=== PATIENT | male | born 1935 | race Caucasian/White ===

== ENCOUNTER 2023-12-20 10:09 | Observation (INO) | payer OTHER, MEDICARE ==
[2023-12-20] MEDS ORDERED: AMLODIPINE 10 MG TAB ONE (10:52)
[2023-12-20 11:14] LABS: Absolute Basophils 0.1 K/uL (0-0.5); Absolute Lymphocytes (CBC) 2.1 K/uL (0.7-4.9); Absolute Monocytes 0.9 K/uL (0.1-1.3); Absolute Neutrophil 8.6 K/uL (1.8-8.0); Eosinophils % 0.2 % (0-4.4); Hematocrit 31.3 % (39.6-49.0); Hemoglobin 10.4 g/dL (13.6-17.9); MCH 30.5 pg (27.0-35.0); MCHC 33.1 g/dL (32.0-36.0); MCV 92.2 fL (80-100); Monocytes % 7.7 % (3.3-12.3); Neutrophils % 73.1 % (41.7-73.7); Platelets 236 thou/uL (152-406); Red Cell Distribution Width 16.5 % (12.1-15.2)
[2023-12-20 11:31] LABS: Albumin 3.4 g/dL (3.4-5.0); Albumin/Globulin Ratio 1.1 (1.1-1.8); Bilirubin Total 0.7 mg/dL (0.2-1.0); Globulin 3.2 g/dL (2.3-3.5); Protein, Total 6.6 g/dL (6.4-8.2)
[2023-12-20 11:37] LABS: Troponin High Sensitivity 120.2 pg/mL (<58.9)
--- NOTE | 2023-12-20 11:50 | EDPHYS ---
Physician Documentation [facility] Name: Walter Sanz Age: 88 yrs Sex: Male : 1935 Arrival Date: 12/20/2023 Time: 10:09 Bed 8 Private MD: ED Physician Ralph Cavazos HPI: 12/19 11:40 This 88 yrs old Male presents to ER via Ambulatory with complaints of High Blood rt Pressure. 11:40 Patient presents to the ED from primary care's office for hypertension. History is rt limited due to patient with baseline dementia, states he has no complaints currently. The patient's blood pressure was reportedly 220 at the office. Denies other acute complaints at this time, symptoms are moderate in severity, no other aggravating or alleviating factors.. Historical: - Allergies: 10:25 PENICILLINS; aa5 - PMHx: 10:25 Hypertensive disorder; kidney problem; pacemaker; Dementia; aa5 - PSHx: 10:25 Pacemaker; aa5 - Immunization history:: Adult Immunizations unknown. - Infectious Disease History:: Denies. - Social history:: Smoking status: Patient denies any tobacco usage or history of. ROS: 12:00 Unable to obtain ROS due to baseline dementia, rt Exam: 12:00 Constitutional: This is a well developed, well nourished patient who is awake, alert, rt and in no acute distress. Head/Face: Normocephalic, atraumatic. Chest/axilla: Normal chest wall appearance and motion. Nontender with no deformity. No lesions are appreciated. Cardiovascular: Regular rate and rhythm with a normal S1 and S2. No gallops, murmurs, or rubs. Normal PMI, no JVD. No pulse deficits. Respiratory: Lungs have equal breath sounds bilaterally, clear to auscultation and percussion. No rales, rhonchi or wheezes noted. No increased work of breathing, no retractions or nasal flaring. Abdomen/GI: Soft, non-tender, with normal bowel sounds. No distension or tympany. No guarding or rebound. No evidence of tenderness throughout. Skin: Warm, dry with normal turgor. Normal color with no rashes, no lesions, and no evidence of cellulitis. MS/ Extremity: Pulses equal, no cyanosis. Neurovascular intact. Full, normal range of motion. 12:00 ECG was reviewed by the Attending Physician. Vital Signs: 10:26 BP 195 / 100; Pulse 60; Resp 16 S; Temp 97.3(TE); Pulse Ox 98% on R/A; Weight 67.13 kg aa5 (R); Height 5 ft. 4 in. (R); 14:39 BP 161 / 50; Pulse 60; Resp 16 S; Pulse Ox 97% on R/A; kc6 15:00 BP 162 / 84; Pulse 48; Resp 16; Pulse Ox 100% on R/A; db 16:00 BP 155 / 54; Pulse 60; Resp 15; Temp 97.6; Pulse Ox 99% on R/A; db 10:26 Body Mass Index 25.40 (67.13 kg, 162.56 cm) aa5 MDM: 10:37 Patient medically screened. rt 12:00 Differential diagnosis: Hypertensive emergency, elevated troponin, renal dysfunction. rt Data reviewed: vital signs, nurses notes, lab test result(s), EKG. Consideration of Admission/Observation Patient was admitted/placed on observation. Management of patient was discussed with the following: Hospitalist: Increased to admit. I considered the following discharge prescriptions or medication management in the emergency department Medications were administered in the Emergency Department. See MAR. Care significantly affected by the following chronic conditions: Hypertension. Counseling: I had a detailed discussion with the patient and/or guardian regarding the historical points, exam findings, and any diagnostic results supporting the discharge/admit diagnosis, lab results, the need for further work-up and treatment in the hospital. Response to treatment: There is no appreciated change of the patient's symptoms at this time. 12/19 10:48 Order name: CBC with Diff; Complete Time: 11:30 rt 12/19 10:48 Order name: CMP; Complete Time: 11:37 rt 12/19 10:48 Order name: Troponin High Sensitivity; Complete Time: 11:37 rt 12/19 13:18 Order name: T4 Free EDUT 12/19 13:18 Order name: Thyroid Stimulating Hormone EDUT 12/19 13:18 Order name: Urinalysis w/ reflexes EDUT 12/19 13:18 Order name: Basic Metabolic Panel EDUT 12/19 13:18 Order name: Basic Metabolic Panel EDUT 12/19 13:18 Order name: Basic Metabolic Panel EDUT 12/19 13:18 Order name: Basic Metabolic Panel EDMS 12/19 13:18 Order name: Basic Metabolic Panel EDMS 12/19 13:18 Order name: Basic Metabolic Panel EDMS 12/19 13:18 Order name: CBC with Automated Diff EDMS 12/19 13:18 Order name: CBC with Automated Diff EDMS 12/19 13:18 Order name: CBC with Automated Diff EDMS 12/19 13:18 Order name: CBC with Automated Diff EDMS 12/19 13:18 Order name: CBC with Automated Diff EDMS 12/19 13:18 Order name: CBC with Automated Diff EDMS 12/19 13:18 Order name: Lipid Profile EDMS 12/19 13:18 Order name: Lipid Profile EDMS 12/19 13:18 Order name: Magnesium EDMS 12/19 13:18 Order name: Magnesium EDMS 12/19 13:18 Order name: Magnesium EDMS 12/19 13:18 Order name: Magnesium EDMS 12/19 13:18 Order name: Magnesium EDMS 12/19 13:18 Order name: Magnesium EDMS 12/19 13:18 Order name: Phosphorus EDMS 12/19 13:18 Order name: Phosphorus EDMS 12/19 13:18 Order name: Phosphorus EDMS 12/19 13:18 Order name: Phosphorus EDMS 12/19 13:18 Order name: Phosphorus EDMS 12/19 13:18 Order name: Phosphorus EDMS 12/19 13:18 Order name: Troponin High Sensitivity EDMS 12/19 13:18 Order name: Troponin High Sensitivity EDMS 12/19 13:18 Order name: Troponin High Sensitivity EDMS 12/19 13:18 Order name: Echo with Doppler EDMS 12/19 10:48 Order name: EKG; Complete Time: 10:49 rt 12/19 10:48 Order name: EKG - Nurse/Tech; Complete Time: 11:11 rt EC:00 Rate is 60 beats/min. Rhythm is regular, Paced with Right bundle branch block. QRS rt interval is normal. QT interval is normal. No Q waves. Administered Medications: 11:11 Drug: amLODIPine PO 10 mg PO once Route: PO; kc6 14:39 Follow up: Response: No adverse reaction; Blood pressure is lowered kc6 11:56 Drug: hydrALAZINE IVP 20 mg IVP once Route: IVP; Site: right antecubital; kc6 14:39 Follow up: Response: No adverse reaction; Blood pressure is lowered kc6 Disposition Summary: 12/20/23 11:49 Hospitalization Ordered Notes: Hospitalization Status: Observation rt Provider: Gerry Sarabia rt Condition: Fair rt Problem: new rt Symptoms: are unchanged rt Bed/Room Type: Standard rt Location: Telemetry/MedSurg (observation)(12/20/23 16:10) kb3 Room Assignment: 403(12/20/23 16:10) kb3 Diagnosis - Hypertensive emergency rt - Elevated troponin rt Forms: - Medication Reconciliation Form rt - SBAR form rt - Leadership Thank You Letter rt Critical care time excluding procedures: 12:00 Critical care time: Bedside Care: 30 minutes, Consultation: 5 minutes. Total time: 35 rt minutes Signatures: Dispatcher [employer] EDEloisa Jones, RN RN aa5 Ilene King RN RN kc6 Mavis Valentin RN RN [email or web address] Ralph Cavazos MD MD rt Corrections: (The following items were deleted from the chart) 10:49 10:49 CBC+H.LAB.BRZ ordered. EDMS EDMS 10:49 10:49 COMPREHENSIVE METABOLIC PANEL+C.LAB.BRZ ordered. EDMS EDMS 10:49 10:49 Troponin High Sensitivity+C.LAB.BRZ ordered. EDMS EDMS 13:31 11:49 Telemetry/MedSurg (observation) rt kb3 13:31 11:49 rt kb3 16:10 13:31 BR ER HOLD kb3 kb3 16:10 13:31 ERHOLD- kb3 kb3
--- NOTE | 2023-12-20 11:50 | ER ---
Nurse's Notes [facility] Name: Walter Sanz Age: 88 yrs Sex: Male : 1935 Arrival Date: 12/20/2023 Time: 10:09 Bed 8 Private MD: Diagnosis: Hypertensive emergency;Elevated troponin Presentation: 12/19 10:26 Chief complaint: Chief complaint: Pt's family report high blood pressure readings at aa5 home, >200 systolic. Coronavirus screen: At this time, the client does not indicate any symptoms associated with coronavirus-19. Ebola Screen: Patient denies travel to an Ebola-affected area in the 21 days before illness onset. Initial Sepsis Screen: Does the patient meet any 2 criteria? No. Patient's initial sepsis screen is negative. Does the patient have a suspected source of infection? No. Patient's initial sepsis screen is negative. Risk Assessment: Do you want to hurt yourself or someone else? Patient reports no desire to harm self or others. Onset of symptoms was November 2023. 10:26 Acuity: SHI 2 aa5 10:26 Method Of Arrival: Ambulatory aa5 Historical: - Allergies: 10:25 PENICILLINS; aa5 - PMHx: 10:25 Hypertensive disorder; kidney problem; pacemaker; Dementia; aa5 - PSHx: 10:25 Pacemaker; aa5 - Immunization history:: Adult Immunizations unknown. - Infectious Disease History:: Denies. - Social history:: Smoking status: Patient denies any tobacco usage or history of. Screenin:12 [facility] ED Fall Risk Assessment (Adult) History of falling in the last 3 months, kc6 including since admission No falls in past 3 months (0 pts) Confusion or Disorientation No (0 pts) Intoxicated or Sedated No (0 pts) Impaired Gait No (0 pts) Mobility Assist Device Used No (0 pt) Altered Elimination No (0 pt) Score/Fall Risk Level 0 - 2 = Low Risk. Abuse screen: Denies threats or abuse. Denies injuries from another. Nutritional screening: No deficits noted. Tuberculosis screening: No symptoms or risk factors identified. Assessment: 11:15 General: Appears in no apparent distress. comfortable, well groomed, well developed, kc6 Behavior is calm, cooperative, appropriate for age. Pain: Denies pain. Neuro: Level of Consciousness is awake, alert, obeys commands, Oriented to person, place, time, situation, Appropriate for age. Cardiovascular: Denies chest pain, Heart tones S1 S2 present Capillary refill < 3 seconds Rhythm is atrial pacer. Respiratory: Airway is patent Trachea midline Respiratory effort is even, unlabored, Respiratory pattern is regular, symmetrical. GI: No signs and/or symptoms were reported involving the gastrointestinal system. : No signs and/or symptoms were reported regarding the genitourinary system. EENT: No signs and/or symptoms were reported regarding the EENT system. Derm: No signs and/or symptoms reported regarding the dermatologic system. Skin is intact, is healthy with good turgor, Skin is pink, warm \T\ dry. Musculoskeletal: No signs and/or symptoms reported regarding the musculoskeletal system. Circulation, motion, and sensation intact. Capillary refill < 3 seconds, Range of motion: intact in all extremities. 12:15 Reassessment: Patient appears in no apparent distress at this time. No changes from kc6 previously documented assessment. Patient and/or family updated on plan of care and expected duration. Pain level reassessed. Patient is alert, oriented x 3, equal unlabored respirations, skin warm/dry/pink. 13:15 Reassessment: Patient appears in no apparent distress at this time. No changes from kc6 previously documented assessment. Patient and/or family updated on plan of care and expected duration. Pain level reassessed. Patient is alert, oriented x 3, equal unlabored respirations, skin warm/dry/pink. 14:39 Reassessment: Patient appears in no apparent distress at this time. No changes from kc6 previously documented assessment. Patient and/or family updated on plan of care and expected duration. Pain level reassessed. Patient is alert, oriented x 3, equal unlabored respirations, skin warm/dry/pink. 16:30 Reassessment: Patient appears in no apparent distress at this time. No changes from db previously documented assessment. Patient and/or family updated on plan of care and expected duration. Pain level reassessed. Patient is alert, oriented x 3, equal unlabored respirations, skin warm/dry/pink. 16:51 Reassessment: PATIENT PROVIDED DINNER TRAY. db Vital Signs: 10:26 BP 195 / 100; Pulse 60; Resp 16 S; Temp 97.3(TE); Pulse Ox 98% on R/A; Weight 67.13 kg aa5 (R); Height 5 ft. 4 in. (R); 14:39 BP 161 / 50; Pulse 60; Resp 16 S; Pulse Ox 97% on R/A; kc6 15:00 BP 162 / 84; Pulse 48; Resp 16; Pulse Ox 100% on R/A; db 16:00 BP 155 / 54; Pulse 60; Resp 15; Temp 97.6; Pulse Ox 99% on R/A; db 10:26 Body Mass Index 25.40 (67.13 kg, 162.56 cm) aa5 ED Course: 10:16 Patient arrived in ED. mg5 10:20 Ralph Cavazos MD is Attending Physician. rt 10:25 Arm band placed on. aa5 10:27 Triage completed. aa5 10:42 Ilene King, TERESSA is Primary Nurse. kc6 11:12 Patient has correct armband on for positive identification. Bed in low position. Call kc6 light in reach. Side rails up X2. Adult w/ patient. potline monitor on. Pulse ox on. NIBP on. Door closed. Noise minimized. Lights dimmed. Pillow given. 11:12 EKG done, by ED staff, reviewed by Ralph Cavazos MD. Inserted saline lock: 20 gauge kc6 in right antecubital area, using aseptic technique. Blood collected. 11:37 Notified ED physician of a critical lab result(s). troponin 120.2. jl7 11:49 Gerry Sarabia is Hospitalizing Provider. rt 13:00 No provider procedures requiring assistance completed. Patient admitted, IV remains in kc6 place. 16:38 Provided Education on: ADMISSION. db Administered Medications: 11:11 Drug: amLODIPine PO 10 mg PO once Route: PO; kc6 14:39 Follow up: Response: No adverse reaction; Blood pressure is lowered kc6 11:56 Drug: hydrALAZINE IVP 20 mg IVP once Route: IVP; Site: right antecubital; kc6 14:39 Follow up: Response: No adverse reaction; Blood pressure is lowered kc6 Medication: 13:00 VIS not applicable for this client. kc6 Outcome: 11:49 Decision to Hospitalize by Provider. rt 13:00 Admitted to ER Hold. Please see [facility] for further documentation. kc6 13:00 Condition: good 13:00 Instructed on the need for admit, 17:22 Patient left the ED. db Signatures: Eloisa Borrero, RN RN aa5 Felicitas Steele RN RN jl7 Ilene King RN RN kc6 Janie Cottrell RN RN db Ralph Cavazos MD MD rt [place], [place] mg5
[2023-12-20] MEDS ORDERED: HYDRALAZINE HCL 20 MG/ML VIAL ONE (11:52)
--- NOTE | 2023-12-20 12:33 | P.HP ---
Certification for Inpatient Patient admitted to: Observation With expected LOS: <2 Midnights Patient will require the following post-hospital care: None Practitioner: I am a practitioner with admitting privileges, knowledge of patient current condition, hospital course, and medical plan of care. Services: Services provided to patient in accordance with Admission requirements found in Title 42 Section 412.3 of the Code of Federal Regulations Patient History Date of Service: 12/20/23 Reason for admission: HTN Urgency, NSTEMI History of Present Illness: Walter Sanz is an 88 year old male with Pmhx hypertension, pacemaker, dementia, kidney problems who presents to the ER from his primary care's office with hypertension. is at bedside and is a good historian, she reports home health ([facility]) nurses evaluating him for several days with an SBP greater than 220 with no changes made to his medications. He was visiting his regular PCP this morning with SBP of 220 and was sent to the emergency room. Upon arrival to the emergency room his troponin elevated at 120.2 while asymptomatic. Walter sees Dr. Lim, has a pacemaker. Of note, Walter has dementia and oriented to person only. Per his , this is his baseline. Initial vital BP 195 / 100; Pulse 60; Resp 16 S; Temp 97.3(TE); Pulse Ox 98% on R/A Walter will be admitted to hospitalist service for further evaluation and treatment, Cardiology consulted. Allergies Penicillins Allergy (Verified 11/30/16 08:32) Rash morphine Adverse Reaction (Verified 11/30/16 08:32) "makes me wired" Home Medications: Amlodipine [Norvasc*] 2.5 mg PO BIDP PRN 11/30/16 Aspirin [Aspirin EC 81 MG] 81 mg PO DAILY 11/30/16 Metoprolol Tartrate 100 mg PO BID 11/30/16 Mv-Min/FA/Vit K/Lycop/Lut/Zeax [Ocuvite Eye Plus Multi Tablet] 1 each PO DAILY 11/30/16 Tramadol HCl [Ultram] 50 mg PO BIDP PRN 11/30/16 Zolpidem Tartrate [Ambien*] 10 mg PO BEDTIME 11/30/16 hydroCHLOROthiazide [Hydrodiuril*] 25 mg PO DAILY 11/30/16 lisinopriL [Prinivil*] 20 mg PO BID 11/30/16 - Past Medical/Surgical History -: Hypertension -: Blood clot R arm -: Prostatectomy -: Cataract surgery -: Neck surgery -: Bilateral foot surgery - Social History Alcohol use: No Review of Systems is unable to be obtained Physical Examination - Physical Exam General: Alert, In no apparent distress, Oriented x1 HEENT: Atraumatic, Normocephalic, PERRLA Neck: Supple Respiratory: Clear to auscultation bilaterally, Normal air movement Cardiovascular: Normal pulses, Regular rate/rhythm, Normal S1 S2 Capillary refill: <2 Seconds Gastrointestinal: Normal bowel sounds, Soft and benign, Non-distended Musculoskeletal: Swelling, Other (bilateral lower extremity edema ) - Studies Laboratory Data (last 24 hrs) 12/20/23 12/20/23 11:05 11:05 WBC 11.70 H Hgb 10.4 L Hct 31.3 L Plt Count 236 Sodium 140 Potassium 4.0 BUN 29 H Creatinine 2.01 H Glucose 96 Total Bilirubin 0.7 AST 11 L ALT 22 Alkaline Phosphatase 78 Assessment and Plan - Plan Assessment and plan NSTEMI Hypertensive urgency Prolonged QT -Trop 120.2, serial pending -QT/QTc 490/490 -Consult cardiology -Hydralazine as needed -Continue home medication -ECHO -continuous telemetry -asa and statin daily (Asa 325 given in ED) -tylenol and nitroglycerin PRN -hold medications that prolong QT -heparin gtt History of Dementia -Continue home medication History of kidney problem -Continue home medication -Dr. Messina consulted -BUN and creatinine 29/2.01, GFR 32 DVT PPx heparin drip Full code LOS 2 to 3 days Discharge Plan: Home Plan to discharge in: 48 Hours - Advance Directives Does patient have a Living Will: No Does patient have a Durable POA for Healthcare: No
[2023-12-20] MEDS ORDERED: ACETAMINOPHEN 325 MG TABLET PO PRN (13:01)
[2023-12-20] MEDS ORDERED: HYDRALAZINE HCL 20 MG/ML VIAL IV PRN (13:01)
[2023-12-20] MEDS ORDERED: NITROGLYCERIN 0.4 MG/TAB SL PRN (13:01)
[2023-12-20 14:15] LABS: Thyroid Stimulating Hormone 5.06 uIU/mL (0.358-3.740)
[2023-12-20] MEDS: NA CHLORIDE 0.9% 1,000 ML IV SCH (19:18)
[2023-12-20 19:31] VITALS: BMI 23.8
[2023-12-20] MEDS: HEPARIN/D5W 25,000 UNIT/500 ML BAG IV SCH (19:52)
[2023-12-20] MEDS: ATORVASTATIN 40 MG TAB PO SCH (20:57)
[2023-12-20 21:22] LABS: Specific Gravity 1.016 (1.005-1.030); Sqamous Epithelial None Seen /HPF (None Seen); Urine Bacteria None Seen /HPF (<20); Urine Bilirubin NEGATIVE (Negative); Urine Blood Negative (Negative); Urine Clarity Clear (Clear); Urine Color Light-Yellow (Yellow); Urine Culture Reflex Order NOT NEEDED; Urine Glucose NEGATIVE (Negative); Urine Ketones NEGATIVE (Negative); Urine Microscopic Reflex YN ORDER UMIC; Urine Nitrite NEGATIVE (Negative); Urine Protein 1+ (Negative); Urine RBC <5 /HPF (None Seen); Urine Urobilinogen Normal (Normal); Urine WBC <5 /HPF (<5); Urine WBC Clump Rare /HPF (None Seen); Urine pH 5.5 (5.0-7.0)
[2023-12-21] MEDS ORDERED: TRAMADOL HCL 50 MG TAB PO PRN (06:33)
[2023-12-21 07:04] LABS: Absolute Lymphocytes (CBC) 1.8 K/uL (0.7-4.9); Absolute Monocytes 0.7 K/uL (0.1-1.3); Absolute Neutrophil 8.4 K/uL (1.8-8.0); Basophils % 0.3 % (0-1.3); Eosinophils % 0.1 % (0-4.4); Hematocrit 28.8 % (39.6-49.0); Hemoglobin 9.7 g/dL (13.6-17.9); MCH 31.2 pg (27.0-35.0); MCHC 33.8 g/dL (32.0-36.0); MCV 92.2 fL (80-100); MPV 8.2 fL (7.6-11.3); Monocytes % 6.8 % (3.3-12.3); Neutrophils % 76.8 % (41.7-73.7); Platelets 199 thou/uL (152-406); RBC Red Blood Cell Count 3.12 M/uL (4.33-5.43); Red Cell Distribution Width 16.5 % (12.1-15.2)
[2023-12-21 07:15] LABS: Anion Gap 8.8 mEq/L (5.0-15.0); Magnesium 2.1 mg/dL (1.6-2.4); Phosphorus 3.1 mg/dL (2.5-4.9); Potassium 3.8 mEq/L (3.5-5.1)
[2023-12-21] MEDS: ASPIRIN EC 81 MG TAB PO SCH (09:00)
[2023-12-21] MEDS: KCL 20 MEQ/100 mL IVPB 20 MEQ/100 ML BAG IV SCH (09:00)
[2023-12-21] MEDS ORDERED: ATORVASTATIN 40 MG TAB PO SCH (09:00)
--- NOTE | 2023-12-21 09:31 | P.PN ---
Date of Service: 12/21/23 Subjective: Awake, denies complaints No acute events overnight No chest pain or shortness of breath ROS: 10 point ROS as noted above, otherwise negative Physical exam GEN: Alert, oriented, NAD HEENT: Normal conjunctiva, sclera anicteric CV: Regular rate and rhythm, no edema Pulm: Nonlabored respirations on room air ABD: Soft, nontender, nondistended MSK: No joint tenderness Integumentary: No rashes Neuro: Normal speech, normal affect Vitals reviewed Assessment and plan NSTEMI Hypertensive urgency Prolonged QT Trop 120.2, 88, 60s downtrending, Consult cardiology Await cardiology recs QT/QTc 490/490 ECHO ordered continuous telemetry asa and statin daily hold medications that prolong QT heparin gtt, resume home xarelto when off heparin drip History of Dementia/TIA Continue home medication History of kidney problem Continue home medication Dr. Messina consulted DVT PPx heparin drip Full code LOS 2 to 3 days Discharge Plan: Home Plan to discharge in: 48 Hours Time Spent Managing Pts Care (In Minutes): 35
[2023-12-21] MEDS: METOPROLOL TAR 50 MG TAB PO SCH (12:45)
[2023-12-21] MEDS: AMLODIPINE 5 MG TAB PO SCH (12:46)
[2023-12-21] MEDS: MEMANTINE HCL 10 MG TABLET PO SCH (12:46)
[2023-12-21 13:32] VITALS: O2SAT 95
--- NOTE | 2023-12-21 13:37 | P.CNS ---
Date of Consult: 12/21/23 Chief Complaint: HTN Urgency, NSTEMI History of Present Illness: Patient with PMH of hypertension, presented with hard to control BP, denies chest pain, no SOB, no palpitations, no syncope. Allergies Penicillins Allergy (Verified 11/30/16 08:32) Rash morphine Adverse Reaction (Verified 11/30/16 08:32) "makes me wired" Home Medications: Metoprolol Tartrate 100 mg PO BID 11/30/16 Mv-Min/FA/Vit K/Lycop/Lut/Zeax [Ocuvite Eye Plus Multi Tablet] 1 each PO DAILY 11/30/16 Tramadol HCl [Ultram] 50 mg PO BIDP PRN 11/30/16 Atorvastatin Calcium 40 mg PO DAILY 12/20/23 Donepezil HCl 10 mg PO BEDTIME 12/20/23 Furosemide [Lasix*] 20 mg PO DIRECTED 12/20/23 Memantine HCl 5 mg PO BID 12/20/23 Thiamine HCl [Vitamin B-1] 500 mg PO DAILY 12/20/23 Trazodone [Desyrel*] 50 mg PO BEDTIME 12/20/23 - Past Medical/Surgical History Diabetic: Yes -: Hypertension -: Blood clot R arm -: Prostatectomy -: Cataract surgery -: Neck surgery -: Bilateral foot surgery - Social History Alcohol use: No CD- Drugs: No Caffeine use: No Place of Residence: Home Review of Systems 10-point ROS is otherwise unremarkable Physical Examination Temp Pulse Resp BP Pulse Ox 98.8 F 82 15 169/70 H 95 12/21/23 12:00 12/21/23 12:46 12/21/23 12:00 12/21/23 12:46 12/21/23 12:00 General: Alert, In no apparent distress HEENT: Atraumatic, PERRLA, Mucous membr. moist/pink, EOMI, Sclerae nonicteric Neck: Supple, 2+ carotid pulse no bruit, No LAD, Without JVD or thyroid abnormality Respiratory: Clear to auscultation bilaterally, Normal air movement Cardiovascular: Regular rate/rhythm, Normal S1 S2 Gastrointestinal: Normal bowel sounds, No tenderness Musculoskeletal: No tenderness Integumentary: No rashes Neurological: Normal gait, Normal speech, Normal tone, Normal affect Lymphatics: No axilla or inguinal lymphadenopathy - Problems (1) NSTEMI (non-ST elevated myocardial infarction) Current Visit: Yes Status: Acute Plan: Troponin mild elevated with no significant delta, pateint is chest pain free, most likely type 2 CT secondary to hypertensive emergency. No need for further work up. Continue ASA 81 mg daily Continue Lipitor 40 mg daily (2) HTN (hypertension) Current Visit: Yes Status: Acute Plan: Continue Lopressor 100 mg po BID Continue Norvasc 5 mg daily Continue Lisinopril 20 mg daily Continue HCTZ 25 mg daily (3) HLD (hyperlipidemia) Current Visit: Yes Status: Acute Plan: Continue Lipitor 40 mg daily
--- NOTE | 2023-12-21 16:19 | P.DS ---
Admission Date: 12/20/23 Discharge Date: 12/21/23 Disposition: DC HOME/HOME HEALTH CARE Discharge Condition: GOOD Reason for Admission: HTN Urgency, NSTEMI Consultations: Cardiology- Dr. Lim Brief History of Present Illness: Walter Sanz is an 88 year old male with Pmhx hypertension, pacemaker, dementia, kidney problems who presents to the ER from his primary care's office with hypertension. is at bedside and is a good historian, she reports home health ([facility]) nurses evaluating him for several days with an SBP greater than 220 with no changes made to his medications. He was visiting his regular PCP this morning with SBP of 220 and was sent to the emergency room. Upon arrival to the emergency room his troponin elevated at 120.2 while asymptomatic. Walter sees Dr. Lim, has a pacemaker. Of note, Walter has dementia and oriented to person only. Per his , this is his baseline. Hospital Course: Assessment and plan NSTEMI Hypertensive urgency Prolonged QT History of Dementia/TIA CKD Patient was admitted to the hospital for NSTEMI, hypertensive emergency. Troponin initially was 120 and trended down to 88 and then to 69.4. He denied any chest pain, shortness of breath or palpitations. He was seen by cardiology who believes this is likely related to demand ischemia from high blood pressure and does not require further inpatient cardiac workup at this time. Blood pressure is significantly improved with his metoprolol 100mg by mouth twice daily and Norvasc 5 mg. If patient requires further blood pressure medication titration the addition of lisinopril 20 mg daily and hydrochlorothiazide 25 mg daily could be added at a later date as recommended by cardiology Cardiology also recommends daily baby aspirin 81 mg. Please continue your other home medications as previously prescribed, prescription for amlodipine 5 mg was sent [address] Dr. Quinn to [facility] pharmacy and should be available for pickup. At this time blood pressure 146/70 with just the twice daily metoprolol and amlodipine 5 mg daily Discussed possible addition of lisinopril 20 mg daily with significant other at bedside, will send prescription to [facility] for the lisinopril 20 mg daily, instructed to add to daily blood pressure medications if his blood pressure is persistently greater than 150 systolic at home Please follow-up with your primary care doctor Dr. Quinn in the next 1 to 2 weeks Please also follow-up with cardiologyDr. Delarosa Vital Signs/Physical Exam: Temp Pulse Resp BP Pulse Ox 98.8 F 82 15 169/70 H 95 12/21/23 12:00 12/21/23 12:46 12/21/23 12:00 12/21/23 12:46 12/21/23 12:00 General: Alert, In no apparent distress, Oriented x2 HEENT: Atraumatic, PERRLA Neck: Supple, JVD not distended Respiratory: Clear to auscultation bilaterally, Normal air movement Cardiovascular: Regular rate/rhythm, Normal S1 S2 Gastrointestinal: Normal bowel sounds, No tenderness Musculoskeletal: No tenderness Integumentary: No rashes Neurological: Normal speech, Normal tone Lymphatics: No axilla or inguinal lymphadenopathy Laboratory Data at Discharge: WBC 10.90 thou/uL (4.3-10.9) 12/21/23 06:22 Hgb 9.7 g/dL (13.6-17.9) L 12/21/23 06:22 Hct 28.8 % (39.6-49.0) L 12/21/23 06:22 Plt Count 199 thou/uL (152-406) 12/21/23 06:22 APTT 66.2 SECONDS (24.3-36.9) H 12/21/23 06:22 Sodium 140 mEq/L (136-145) 12/21/23 06:22 Potassium 3.8 mEq/L (3.5-5.1) 12/21/23 06:22 BUN 27 mg/dL (7-18) H 12/21/23 06:22 Creatinine 1.96 mg/dL (0.70-1.30) H 12/21/23 06:22 Glucose 133 mg/dL (74-106) H 12/21/23 06:22 Phosphorus 3.1 mg/dL (2.5-4.9) 12/21/23 06:22 Magnesium 2.1 mg/dL (1.6-2.4) 12/21/23 06:22 Total Bilirubin 0.7 mg/dL (0.2-1.0) 12/20/23 11:05 AST 11 U/L (15-37) L 12/20/23 11:05 ALT 22 U/L (16-61) 12/20/23 11:05 Alkaline Phosphatase 78 U/L (45-117) 12/20/23 11:05 Triglycerides 47 mg/dL (<150) 12/21/23 06:22 Cholesterol 106 mg/dL (<200) 12/21/23 06:22 HDL Cholesterol 69 mg/dL (40-60) H 12/21/23 06:22 Cholesterol/HDL Ratio 1.54 12/21/23 06:22 Home Medications: Metoprolol Tartrate 100 mg PO BID 11/30/16 Mv-Min/FA/Vit K/Lycop/Lut/Zeax [Ocuvite Eye Plus Multi Tablet] 1 each PO DAILY 11/30/16 Tramadol HCl [Ultram] 50 mg PO BIDP PRN 11/30/16 Atorvastatin Calcium 40 mg PO DAILY 12/20/23 Donepezil HCl 10 mg PO BEDTIME 12/20/23 Furosemide [Lasix*] 20 mg PO DIRECTED 12/20/23 Memantine HCl 5 mg PO BID 12/20/23 Thiamine HCl [Vitamin B-1] 500 mg PO DAILY 12/20/23 Trazodone [Desyrel*] 50 mg PO BEDTIME 12/20/23 Amlodipine [Norvasc*] 5 mg PO DAILY tab 12/21/23 lisinopriL [Lisinopril] 20 mg PO DAILY #30 tab 12/21/23 New Medications: lisinopriL [Lisinopril] 20 mg PO DAILY #30 tab Physician Discharge Instructions: Patient was admitted to the hospital for NSTEMI, hypertensive emergency. Troponin initially was 120 and trended down to 88 and then to 69.4. He denied any chest pain, shortness of breath or palpitations. He was seen by cardiology who believes this is likely related to demand ischemia from high blood pressure and does not require further inpatient cardiac workup at this time. Blood pressure is significantly improved with his metoprolol 100mg by mouth twice daily and Norvasc 5 mg. If patient requires further blood pressure medication titration the addition of lisinopril 20 mg daily and hydrochlorothiazide 25 mg daily could be added at a later date as recommended by cardiology Cardiology also recommends daily baby aspirin 81 mg. Please continue your other home medications as previously prescribed, prescription for amlodipine 5 mg was sent by Dr. Quinn to [facility] pharmacy and should be available for pickup. At this time blood pressure 146/70 with just the twice daily metoprolol and amlodipine 5 mg daily Discussed possible addition of lisinopril 20 mg daily with significant other at bedside, will send prescription to [facility] for the lisinopril 20 mg daily, instructed to add to daily blood pressure medications if his blood pressure is persistently greater than 150 systolic at home Please follow-up with your primary care doctor Dr. Quinn in the next 1 to 2 weeks Please also follow-up with cardiology[facility]. [facility]: [facility] P:[phone] F:[phone] Diet: AHA Activity: Fall precautions Followup: Dawson Delarosa MD [ACTIVE - CAN ADMIT] - Edvin Quinn MD [Primary Care Provider] - 1-2 Weeks Time spent managing pt's care (in minutes): 35
[2023-12-21 16:51] VITALS: BP 146/70; TEMP 97.5
[2023-12-21] MEDS ORDERED: TRAZODONE 50 MG TABLET PO SCH (21:00)
[2023-12-21] MEDS ORDERED: DONEPEZIL HCL 5 MG TAB PO SCH (21:00)
--- NOTE | 2023-12-22 14:12 | EKG ---
Test Date: 2023-12-20 Test Time: 10:58:11 Campus Supervisor: CHYNA MEASUREMENT RESULTS: Intervals: Rate: 60 CO: 268 QRSD: 134 QT: 490 QTc: 490 [place]: P: 98 CO: 268 QRS: 82 T: -61 INTERPRETIVE STATEMENTS: Atrial-paced rhythm with prolonged AV conduction Right bundle branch block Abnormal ECG Compared to ECG 05/03/2020 11:27:40 Sinus rhythm no longer present First degree AV block no longer present Electronically Signed On 12-22-23 14:07:54 CDT by Dawson Delarosa
--- NOTE | 2023-12-24 07:50 | ECHO ---
HEIGHT: 5 ft 6 in WEIGHT: 148 lb 0 oz DATE OF STUDY: 12/21/[address]: Amy Lawson NP 2-DIMENSIONAL: YES M.MODE: YES DOPPLER: YES COLOR FLOW: YES TDS: PORTABLE: YES DEFINITY: BUBBLE STUDY: DIAGNOSIS: NON ST ELEVATION MYOCARDIAL INFARCTION CARDIAC HISTORY: CATHERIZATION: NO SURGERY: NO PROSTHETIC VALVE: NO PACEMAKER: YES MEASUREMENTS (cm) DIASTOLIC (NORMALS) SYSTOLIC (NORMALS) IVSd 1.1 (0.6-1.2) LA Diam 2.3 (1.9-4.0) LVEF 60-65% LVIDd 4.4 (3.5-5.7) LVIDs 2.8 (2.0-3.5) %FS 37% LVPWd 1.1 (0.6-1.2) Ao Diam 2.9 (2.0-3.7) 2 DIMENSIONAL ASSESSMENT: RIGHT ATRIUM: NORMAL LEFT ATRIUM: NORMAL RIGHT VENTRICLE: NORMAL, PACEMAKER LEAD SEEN LEFT VENTRICLE: NORMAL TRICUSPID VALVE: MILD TRICUSPID REGURGITATION MITRAL VALVE: TRACE MITRAL REGURGITATION PULMONIC VALVE: NORMAL AORTIC VALVE: TRACE AORTIC REGURGITATION PERICARDIAL EFFUSION: NONE AORTIC ROOT: NORMAL LEFT VENTRICULAR WALL MOTION: NORMAL DOPPLER/COLOR FLOW: GRADE I DIASTOLIC DYSFUNCTION COMMENTS: 1. NORMAL LEFT VENTRICULAR SYSTOLIC FUCNTION, EJECTION FRACTION 60-65%, NORMAL WALL MOTION 2. GRADE I DIASTOLIC DYSFUNCTION 3. MILD PULMONARY HYPERTENSION (RIGHT VENTRICULAR SYSTOLIC PRESSURE 40-45 mmHg) TECHNOLOGIST: STEPHANIE WHITE
== END 2023-12-21 17:38 | disposition home health service (06) ==
LOC: ER 10:09 → ERHOLD 13:01 → 4TH 17:09
PROVIDERS: ADMIT Internal Medicine; ATTEND Internal Medicine
DX: I21.4 Non-ST elevation (NSTEMI) myocardial infarction (principal); I16.0 Hypertensive urgency; R94.31 Abnormal electrocardiogram [ECG] [EKG]; F03.90 Unspecified dementia, unspecified severity, without behavioral disturbance, psychotic disturbance, mood disturbance, and anxiety; N18.9 Chronic kidney disease, unspecified; E78.5 Hyperlipidemia, unspecified; Z88.0 Allergy status to penicillin; Z88.5 Allergy status to narcotic agent; Z86.73 Personal history of transient ischemic attack (TIA), and cerebral infarction without residual deficits
CPT/HCPCS: 93005; 93306; 85025 ×2; 81001; 80048; 36415 ×2; 83735; 84100; 80061; 85730 ×3; 84443; 83036; 84484 ×3; 84439; 80053; 97116; 97161; 96374; 99285; J0360; J7030; G0378 ×4

== ENCOUNTER 2024-02-27 07:30 | Day surgery (SDC) | payer OTHER, MEDICARE ==
[2024-02-27 07:47] LABS: Absolute Eosinophils 0.2 K/uL (0-0.5); Absolute Lymphocytes (CBC) 2.9 K/uL (0.7-4.9); Absolute Monocytes 0.7 K/uL (0.1-1.3); Absolute Neutrophil 3.5 K/uL (1.8-8.0); Basophils % 0.6 % (0-1.3); Eosinophils % 3.2 % (0-4.4); Hematocrit 30.1 % (39.6-49.0); Hemoglobin 9.8 g/dL (13.6-17.9); Lymphocytes % 40.1 % (15.3-44.8); MCH 30.3 pg (27.0-35.0); MCHC 32.6 g/dL (32.0-36.0); MCV 92.8 fL (80-100); MPV 7.8 fL (7.6-11.3); Monocytes % 8.9 % (3.3-12.3); Neutrophils % 47.2 % (41.7-73.7); Platelets 193 thou/uL (152-406); RBC Red Blood Cell Count 3.25 M/uL (4.33-5.43); Red Cell Distribution Width 16.5 % (12.1-15.2)
[2024-02-27] MEDS ORDERED: NA CHLORIDE 0.9% 1,000 ML ONE (07:51)
[2024-02-27 08:03] LABS: PT Prothrombin Time 17.6 SECONDS (9.4-12.5); PTT, Activated Partial Thromb 42.3 SECONDS (24.3-36.9); Protime INR 1.59
[2024-02-27 08:09] LABS: Anion Gap 9.7 mEq/L (5.0-15.0); Potassium 3.7 mEq/L (3.5-5.1)
[2024-02-27 08:25] VITALS: TEMP 97.9; O2SAT 98; BMI 23.3
[2024-02-27 09:31] VITALS: BP 165/60
== END 2024-02-27 09:22 | disposition home or self-care (01) ==
LOC: DS 07:30
PROVIDERS: ATTEND Internal Medicine
DX: D47.2 Monoclonal gammopathy (principal); N17.9 Acute kidney failure, unspecified
CPT/HCPCS: 36415; 80048; 85025; 85610; 85730; J7030

== ENCOUNTER 2024-04-09 07:19 | Day surgery (SDC) | payer OTHER, MEDICARE ==
[2024-04-09 07:54] LABS: Absolute Eosinophils 0.2 K/uL (0-0.5); Absolute Lymphocytes (CBC) 2.2 K/uL (0.7-4.9); Absolute Monocytes 0.6 K/uL (0.1-1.3); Absolute Neutrophil 3.8 K/uL (1.8-8.0); Basophils % 0.4 % (0-1.3); Eosinophils % 2.5 % (0-4.4); Hematocrit 27.2 % (39.6-49.0); Lymphocytes % 32.1 % (15.3-44.8); MCH 29.9 pg (27.0-35.0); MCHC 33.1 g/dL (32.0-36.0); MCV 90.2 fL (80-100); MPV 7.4 fL (7.6-11.3); Monocytes % 8.8 % (3.3-12.3); Neutrophils % 56.2 % (41.7-73.7); Nucleated Red Blood Cells % 0.1 % (0-0); Platelets 142 thou/uL (152-406); RBC Red Blood Cell Count 3.02 M/uL (4.33-5.43); Red Cell Distribution Width 16.8 % (12.1-15.2)
[2024-04-09 08:01] LABS: PT Prothrombin Time 12.4 SECONDS (9.4-12.5); PTT, Activated Partial Thromb 33.5 SECONDS (24.3-36.9); Protime INR 1.11
[2024-04-09 08:08] LABS: Anion Gap 6.9 mEq/L (5.0-15.0); Potassium 3.9 mEq/L (3.5-5.1)
[2024-04-09] MEDS ORDERED: NA CHLORIDE 0.9% 1,000 ML ONE (08:17)
[2024-04-09] MEDS ORDERED: NALOXONE HCL 2 MG/2 ML VIAL ONE (08:43)
[2024-04-09] MEDS ORDERED: FENTANYL CITR 100 MCG/2 ML ONE (08:44)
[2024-04-09] MEDS ORDERED: MIDAZOLAM HCL 2 MG/2 ML INJ ONE (08:44)
[2024-04-09 11:32] VITALS: TEMP 97; BMI 25.7
--- NOTE | 2024-04-09 13:24 | RAD REPORT ---
EXAMINATION: Renal Biopsy CT INDICATION: renal biopsy Pre-procedure diagnosis: Acute kidney injury Post-procedure diagnosis: Same as above. COMPLICATIONS: Small volume nonlocalized hemorrhage along the right flank retroperitoneum, measuring 2.4 cm in thickness. PROCEDURE DETAILS: Consent: Informed consent for the procedure was obtained following discussion of the risks, benefits and alternatives was obtained. Time-out was performed prior to the procedure. Sedation: Moderate sedation (conscious sedation) Administered by: Nurse, or other independent traine d observer, with level of consciousness and vital signs continuously monitored. Total sedation administered: 0.5 mg Versed and 75 mcg Fentanyl. Total intra-service sedation time: 30 minutes. Biopsy: Initial scanning revealed atrophic changes of both kidneys. 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 Local anesthesia was administered. Under CT guidance, an 18 gauge biopsy needle was advanced to the lower p ole of the right kidney and core biopsy was performed. Number of specimens/passes: 3 Additional sampling description: None. Preliminary assessment of sample adequacy: Not applicable. The biopsy needle was removed and a sterile dressing was applied. Post-biopsy imaging findings: As above Estimated blood loss: Less than 10 mL. IMPRESSION: Technically successful CT-guided biopsy of [place] right kidney. Small volume lungs localized hemorrhage along the right flank retroperitoneum. 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 THIS REPORT CONTAINS FINDINGS THAT MAY BE CRITICAL TO PATIENT CARE. The findings were communicated to Gabino Messina MD on 04/09/2024 12:10 PM.
[2024-04-09 14:49] VITALS: BP 123/55; O2SAT 97
== END 2024-04-09 15:00 | disposition home or self-care (01) ==
LOC: DS 07:19
PROVIDERS: ATTEND Internal Medicine
PROC: 0TB03ZX Excision of Right Kidney, Percutaneous Approach, Diagnostic (ICD-10-PCS; principal; 2024-04-09)
DX: I12.9 Hypertensive chronic kidney disease with stage 1 through stage 4 chronic kidney disease, or unspecified chronic kidney disease (principal); N18.32 Chronic kidney disease, stage 3b; N17.9 Acute kidney failure, unspecified; D47.2 Monoclonal gammopathy
CPT/HCPCS: 77012; 85025; 80048; 36415; 85610; 88300; 85730; 50200; J2250; J3010; J7030; J2310

== ENCOUNTER 2024-08-19 12:03 | Emergency (ER) | payer OTHER, MEDICARE ==
[2024-08-19 14:17] LABS: Absolute Eosinophils 0.1 K/uL (0-0.5); Absolute Monocytes 0.7 K/uL (0.1-1.3); Absolute Neutrophil 5.4 K/uL (1.8-8.0); Basophils % 0.5 % (0-1.3); Eosinophils % 0.9 % (0-4.4); Hematocrit 35.7 % (39.6-49.0); Hemoglobin 12.2 g/dL (13.6-17.9); Lymphocytes % 24.6 % (15.3-44.8); MCH 32.5 pg (27.0-35.0); MCV 95.6 fL (80-100); MPV 7.9 fL (7.6-11.3); Monocytes % 8.1 % (3.3-12.3); Neutrophils % 65.9 % (41.7-73.7); Nucleated Red Blood Cells % 0.1 % (0-0); Platelets 162 thou/uL (152-406); RBC Red Blood Cell Count 3.74 M/uL (4.33-5.43); Red Cell Distribution Width 15.9 % (12.1-15.2)
[2024-08-19 14:39] LABS: Albumin/Globulin Ratio 0.9 (1.1-1.8); Alkaline Phosphatase 83 U/L (45-117); Anion Gap 8.9 mEq/L (5.0-15.0); BUN Blood Urea Nitrogen 21 mg/dL (7-18); Bicarbonate 28 mEq/L (21-32); Bilirubin Direct 0.3 mg/dL (0-0.2); Bilirubin Indirect, Calculated 0.5 mg/dL (0.2-0.8); Bilirubin Total 0.8 mg/dL (0.2-1.0); Globulin 3.5 g/dL (2.3-3.5); Glomerular Filtration Rate 25 ml/min (=/>90); Glucose Level 96 mg/dL (74-106); Magnesium 2.5 mg/dL (1.6-2.4); Potassium 2.9 mEq/L (3.5-5.1); Protein, Total 6.5 g/dL (6.4-8.2); Sodium Level 141 mEq/L (136-145); Troponin High Sensitivity 34.6 pg/mL (<58.9)
[2024-08-19 14:40] LABS: ALT/SGPT < 14 U/L (16-61); AST/SGOT < 10 U/L (15-37)
[2024-08-19] MEDS ORDERED: KCL 20 MEQ/100 mL IVPB 100 ML IV ONE (15:34)
[2024-08-19] MEDS ORDERED: POTASSIUM 25 MEQ EFFERV TAB ONE (15:34)
[2024-08-19] MEDS ORDERED: NA CHLORIDE 0.9% 500 ML ONE (15:34)
--- NOTE | 2024-08-19 17:48 | ER ---
Nurse's Notes [facility] Name: Walter Sanz Age: 89 yrs Sex: Male : 1935 Arrival Date: 08/19/2024 Time: 12:03 Bed 16 Private MD: Diagnosis: Hypokalemia Presentation: 08/19 12:20 Chief complaint: Friend and/or Co-Worker states: he had [facility] and they called to say his potassium was low and he needs an infusion , he is on lasix and is not currently on PO potassium. Coronavirus screen: At this time, the client does not indicate any symptoms associated with coronavirus-19. Ebola Screen: No symptoms or risks identified at this time. Initial Sepsis Screen: Does the patient meet any 2 criteria? No. Patient's initial sepsis screen is negative. Does the patient have a suspected source of infection? No. Patient's initial sepsis screen is negative. Risk Assessment: Do you want to hurt yourself or someone else? Patient reports no desire to harm self or others. Onset of symptoms was August 19, 2024. 12:20 Method Of Arrival: Ambulatory iw 12:20 Acuity: SHI 3 iw Historical: - Allergies: 12:21 PENICILLINS; iw - PMHx: 12:21 Dementia; Hypertensive disorder; kidney problem; Pacemaker; skin cancer; iw - PSHx: 12:21 pacemaker; iw - Immunization history:: Adult Immunizations unknown. - Infectious Disease History:: Denies. - Social history:: Smoking status: Patient/guardian denies using tobacco, but has a distant history of tobacco abuse. - Family history:: not pertinent. Screenin:00 [facility] ED Fall Risk Assessment (Adult) History of falling in the last 3 months, db including since admission No falls in past 3 months (0 pts) Confusion or Disorientation No (0 pts) Intoxicated or Sedated No (0 pts) Impaired Gait No (0 pts) Mobility Assist Device Used No (0 pt) Altered Elimination No (0 pt) Score/Fall Risk Level 0 - 2 = Low Risk Oriented to surroundings, Maintained a safe environment. Abuse screen: Denies threats or abuse. Denies injuries from another. Nutritional screening: No deficits noted. Tuberculosis screening: No symptoms or risk factors identified. Assessment: 16:00 Reassessment: Patient appears in no apparent distress at this time. Patient and/or db family updated on plan of care and expected duration. Pain level reassessed. Patient is alert, oriented x 3, equal unlabored respirations, skin warm/dry/pink. General: Appears in no apparent distress. comfortable, Behavior is calm, cooperative. Pain: Denies pain. Neuro: Level of Consciousness is awake, alert, obeys commands, Oriented to person, place. Respiratory: Airway is patent Respiratory effort is even, unlabored, Respiratory pattern is regular, symmetrical. 18:15 Reassessment: Patient appears in no apparent distress at this time. Patient and/or db family updated on plan of care and expected duration. Pain level reassessed. Patient is alert, oriented x 3, equal unlabored respirations, skin warm/dry/pink. Vital Signs: 12:20 BP 147 / 69; Pulse 60; Resp 16; Temp 97.4; Pulse Ox 94% on R/A; iw 16:00 BP 173 / 76; Pulse 61; Resp 16; Pulse Ox 100% ; db 18:00 BP 174 / 77; Pulse 63; Resp 14; Pulse Ox 100% on R/A; db ED Course: 12:09 Patient arrived in ED. al6 12:20 Ralph Cavazos MD is Attending Physician. rt 12:21 Triage completed. iw 12:22 Arm band placed on. iw 14:13 Initial lab(s) drawn, by me, sent to lab. Inserted saline lock: 20 gauge in left iw antecubital area, using aseptic technique. Blood collected. Flushed with 10 mL NS. 15:11 Patient placed in an exam room, on a stretcher. ll1 16:07 Janie Cottrell, RN is Primary Nurse. db 18:15 Patient has correct armband on for positive identification. Bed in low position. Call db light in reach. Side rails up X2. Provided Education on: DISCHARGE AND FOLLOWUP. Client placed on continuous cardiac and pulse oximetry monitoring. NIBP monitoring applied. gambling monitor on. Pulse ox on. NIBP on. 18:15 No provider procedures requiring assistance completed. IV discontinued, intact, db bleeding controlled, No redness/swelling at site. Administered Medications: 16:06 Drug: Potassium Chloride IV 20 mEq IV at calculated rate once; administer over 1-2 iw hours Route: IV; Rate: calculated rate; Site: left antecubital; 18:05 Follow up: Response: No adverse reaction; IV Status: Completed infusion; IV Intake: db 100ml 16:06 Drug: Potassium Chloride PO 40 mEq PO once Route: PO; iw 18:16 Follow up: Response: No adverse reaction db Medication: 16:00 VIS not applicable for this client. db Intake: 18:05 IV: 100ml; Total: 100ml. db Outcome: 17:47 Discharge ordered by MD. rt 18:15 Discharged to home ambulatory, with friend, db 18:15 Condition: stable 18:15 Discharge instructions given to patient, Instructed on discharge instructions, follow up and referral plans. Prescriptions given X 1, 18:17 Patient left the ED. db Signatures: Dilma Caro RN TERESSA iw Duncan Perez RN RN ll1 Janie Cottrell RN RN Ralph Price MD MD rt Anneliese Morin6
--- NOTE | 2024-08-19 17:48 | EDPHYS ---
Physician Documentation [facility] Name: Walter Sanz Age: 89 yrs Sex: Male : 1935 Arrival Date: 08/19/2024 Time: 12:03 Bed 16 Private MD: ED Physician Ralph Cavazos HPI: 08/19 13:39 This 89 yrs old Male presents to ER via Ambulatory with complaints of Abnormal Lab rt Results. 13:39 Patient presents to the ED with reportedly low potassium levels on outpatient labs, rt unclear how low they were. He denies any symptoms currently. States that he does take Lasix. Does not take potassium supplementation. Denies other acute complaints at this time, symptoms are mild in severity, no other aggravating or alleviating factors.. Historical: - Allergies: 12:21 PENICILLINS; iw - PMHx: 12:21 Dementia; Hypertensive disorder; kidney problem; Pacemaker; skin cancer; iw - PSHx: 12:21 pacemaker; iw - Immunization history:: Adult Immunizations unknown. - Infectious Disease History:: Denies. - Social history:: Smoking status: Patient/guardian denies using tobacco, but has a distant history of tobacco abuse. - Family history:: not pertinent. ROS: 13:39 Constitutional: Negative for fever, chills, and weight loss, Cardiovascular: Negative rt for chest pain, palpitations, and edema, Respiratory: Negative for shortness of breath, cough, wheezing, and pleuritic chest pain, Abdomen/GI: Negative for abdominal pain, nausea, vomiting, diarrhea, and constipation, MS/Extremity: Negative for injury and deformity, Skin: Negative for injury, rash, and discoloration, Neuro: Negative for headache, weakness, numbness, tingling, and seizure, Exam: 13:39 Constitutional: This is a well developed, well nourished patient who is awake, alert, rt and in no acute distress. Head/Face: Normocephalic, atraumatic. Chest/axilla: Normal chest wall appearance and motion. Nontender with no deformity. No lesions are appreciated. Cardiovascular: Regular rate and rhythm with a normal S1 and S2. No gallops, murmurs, or rubs. Normal PMI, no JVD. No pulse deficits. Respiratory: Lungs have equal breath sounds bilaterally, clear to auscultation and percussion. No rales, rhonchi or wheezes noted. No increased work of breathing, no retractions or nasal flaring. Abdomen/GI: Soft, non-tender, with normal bowel sounds. No distension or tympany. No guarding or rebound. No evidence of tenderness throughout. Skin: Warm, dry with normal turgor. Normal color with no rashes, no lesions, and no evidence of cellulitis. MS/ Extremity: Pulses equal, no cyanosis. Neurovascular intact. Full, normal range of motion. Neuro: Awake and alert, GCS 15, oriented to person, place, time, and situation. Cranial nerves II-XII grossly intact. Motor strength 5/5 in all extremities. Sensory grossly intact. Cerebellar exam normal. Normal gait. 16:18 ECG was reviewed by the Attending Physician. rt Vital Signs: 12:20 BP 147 / 69; Pulse 60; Resp 16; Temp 97.4; Pulse Ox 94% on R/A; iw 16:00 BP 173 / 76; Pulse 61; Resp 16; Pulse Ox 100% ; db 18:00 BP 174 / 77; Pulse 63; Resp 14; Pulse Ox 100% on R/A; db MDM: 12:21 Medical Screening Exam initiated rt 16:21 Differential Diagnosis Hypokalemia, hypomagnesemia. Data reviewed: vital signs, nurses rt notes, lab test result(s), EKG. Consideration of Admission/Observation Escalation of care including admission/observation considered. Patient with mild hypokalemia without EKG changes, will replete, likely due to diuretic use, no indications for admission at this time.. I considered the following discharge prescriptions or medication management in the emergency department Medications were administered in the Emergency Department. See MAR. Care significantly affected by the following chronic conditions: Hypertension. Counseling: I had a detailed discussion with the patient and/or guardian regarding the historical points, exam findings, and any diagnostic results supporting the discharge/admit diagnosis, lab results, the need for outpatient follow up, to return to the emergency department if symptoms worsen or persist or if there are any questions or concerns that arise at home. Response to treatment: the patient's symptoms have markedly improved after treatment. 08/19 12: Order name: Basic Metabolic Panel; Complete Time: 14:47 rt 08/19 12: Order name: CBC with Diff; Complete Time: 14:47 rt 08/19 12:26 Order name: LFT's; Complete Time: 14:47 rt 08/19 12:26 Order name: Magnesium; Complete Time: 14:47 rt 08/19 12:26 Order name: Troponin HS; Complete Time: 14:47 rt 08/19 12:26 Order name: Cardiac monitoring; Complete Time: 16: rt 08/19 12:26 Order name: EKG - Nurse/Tech; Complete Time: 15:28 rt 08/19 12:26 Order name: IV Saline Lock; Complete Time: 16: rt 08/19 12:26 Order name: Labs collected and sent; Complete Time: 16: rt 08/19 12: Order name: O2 Per Protocol; Complete Time: 16: rt 08/19 12: Order name: O2 Sat Monitoring; Complete Time: 16: rt EC: Rate is 60 beats/min. Rhythm is regular, Paced with No ectopy. Left axis deviation rt noted. QT interval is normal. No Q waves. Administered Medications: 16:06 Drug: Potassium Chloride IV 20 mEq IV at calculated rate once; administer over 1-2 iw hours Route: IV; Rate: calculated rate; Site: left antecubital; 18:05 Follow up: Response: No adverse reaction; IV Status: Completed infusion; IV Intake: db 100ml 16:06 Drug: Potassium Chloride PO 40 mEq PO once Route: PO; iw 18:16 Follow up: Response: No adverse reaction db Disposition Summary: 08/19/24 17:47 Discharge Ordered Notes: Location: Home rt Problem: new rt Symptoms: have improved rt Condition: Stable rt Diagnosis - Hypokalemia rt Followup: rt - With: Private Physician - When: 2 - 3 days - Reason: Discharge Instructions: - Discharge Summary Sheet rt - Hypokalemia rt Forms: - Medication Reconciliation Form rt - Antibiotic Education rt - Prescription Opioid Use rt - Patient Portal Instructions rt - Leadership Thank You Letter rt Prescriptions: - Potassium Chloride 10 mEq Oral Tablet - take 1 tablet ORAL route every 12 hours; 30 tablet; Refills: 0, Product rt Selection Permitted Signatures: Dispatcher [employer] Dilma Perez RN RN iw Janie Cottrell RN RN db [place], Ryan, MD MD rt Corrections: (The following items were deleted from the chart) 12: 12:26 BASIC METABOLIC PANEL+C.LAB.BRZ ordered. EDMS EDMS 12: CBC+H.LAB.BRZ ordered. EDMS EDMS 12: HEPATIC FUNCTION+C.LAB.BRZ ordered. EDMS EDMS 12: MAGNESIUM+C.LAB.BRZ ordered. EDMS EDMS 12: Troponin High Sensitivity+C.LAB.BRZ ordered. EDMS EDMS
[2024-08-19 18:30] VITALS: TEMP 97.4
[2024-08-19 18:31] VITALS: O2SAT 100
[2024-08-19 18:32] VITALS: BP 174/77
== END 2024-08-19 18:17 | disposition home or self-care (01) ==
LOC: ER 12:03
DX: E87.6 Hypokalemia (principal); N28.9 Disorder of kidney and ureter, unspecified; I10 Essential (primary) hypertension; Z95.0 Presence of cardiac pacemaker
CPT/HCPCS: 85025; 80048; 36415; 83735; 80076; 84484; J3480; J7040

== ENCOUNTER 2024-09-16 14:48 | Inpatient (IN) | payer OTHER, MEDICARE ==
[2024-09-16 16:30] LABS: Absolute Basophils 0.1 K/uL (0-0.5); Absolute Lymphocytes (CBC) 1.6 K/uL (0.7-4.9); Absolute Monocytes 0.9 K/uL (0.1-1.3); Basophils % 0.6 % (0-1.3); Eosinophils % 0.2 % (0-4.4); Hematocrit 27.1 % (39.6-49.0); Hemoglobin 9.1 g/dL (13.6-17.9); Lymphocytes % 12.9 % (15.3-44.8); MCH 32.2 pg (27.0-35.0); MCHC 33.5 g/dL (32.0-36.0); MCV 96.3 fL (80-100); MPV 8.9 fL (7.6-11.3); Neutrophils % 79.3 % (41.7-73.7); Platelets 215 thou/uL (152-406); RBC Red Blood Cell Count 2.81 M/uL (4.33-5.43); Red Cell Distribution Width 15.3 % (12.1-15.2)
[2024-09-16 16:44] LABS: Anion Gap 14.7 mEq/L (5.0-15.0); Potassium 4.7 mEq/L (3.5-5.1)
--- NOTE | 2024-09-16 16:46 | EDPHYS ---
Physician Documentation [facility] Name: Walter Sanz Age: 89 yrs Sex: Male : 1935 Arrival Date: 09/16/2024 Time: 14:48 Bed 15 Private MD: ED Physician Alonso Jara HPI: 09/16 16:43 This 89 yrs old Male presents to ER via Ambulatory with complaints of Hip Injury - left.kb 16:43 Pt is an 89 year old male who presents for left hip fracture. Pt tripped and fell about one week ago, has had left hip pain and hasn't been able to walk. Went to Dr Quinn today for symptoms, had outpatient xrays done which showed a left hip fracture. Pt was sent to ED for further treatment. Historical: - Allergies: 15:30 PENICILLINS; me1 15:30 Morphine; me1 - PMHx: 15:30 Dementia; Hypertensive disorder; kidney problem; Pacemaker; skin cancer; me1 - PSHx: 15:30 pacemaker; me1 - Immunization history:: Adult Immunizations up to date. - Infectious Disease History:: Denies. - Social history:: Smoking status: Patient denies any tobacco usage or history of. ROS: 15:44 Constitutional: As per HPI kb Exam: 16:23 Constitutional: This is a well developed, well nourished patient who is awake, alert, kb and in no acute distress. Head/Face: Normocephalic, atraumatic. ENT: Moist Mucous membranes Cardiovascular: Regular rate Respiratory: Respirations even and unlabored. No increased work of breathing. Talking in full sentences Skin: Warm, dry with normal turgor. Normal color. Neuro: Awake and alert, GCS 15, oriented to person, place, time, and situation. 16:23 Musculoskeletal/extremity: Extremities: grossly normal except: noted in the left hip: decreased ROM, pain, tenderness, ROM: limited active range of motion, limited active range of motion due to pain, Circulation is intact in all extremities. Sensation intact. Weight bearing: able to fully bear weight, 16:24 ECG was reviewed by the Attending Physician. kb Vital Signs: 15:28 BP 146 / 86; Pulse 60; Resp 18; Temp 98.4; Pulse Ox 100% ; Weight 63.5 kg; Height 5 ft. me1 8 in. ; Pain 7/10; 17:15 BP 140 / 67; Pulse 66; Resp 18; Pulse Ox 99% ; jl7 19:05 BP 148 / 65; Pulse 66; Resp 18; Pulse Ox 99% on R/A; Pain 0/10; rg5 15:28 Body Mass Index 21.29 (63.50 kg, 172.72 cm) me1 15:28 Pain Scale: Adult me1 19:05 Pain Scale: Adult rg5 MDM: 15:00 Medical Screening Exam initiated kb 16:42 Differential diagnosis: hip fracture, intertrochanteric fracture, femoral neck kb fracture, femoral shaft fracture. Data reviewed: vital signs, nurses notes. Consideration of Admission/Observation Patient was admitted/placed on observation. Escalation of care including admission/observation considered. Management of patient was discussed with the following: Hospitalist: Pt accepted for admission under Dr Jara. Reverberatory Furnace Operator: Dr Mtz accepts pt for consult. Historians other than the Patient: Spouse/Significant Other: . Counseling: I had a detailed discussion with the patient and/or guardian regarding the historical points, exam findings, and any diagnostic results supporting the discharge/admit diagnosis, lab results, radiology results, the need for further work-up and treatment in the hospital. 09/16 15:44 Order name: CBC with Diff; Complete Time: 16:32 kb 09/16 15:44 Order name: BMP; Complete Time: 16:46 kb 09/16 18:04 Order name: Protime (+INR); Complete Time: 18:04 EDMS 09/16 18:04 Order name: PTT, Activated Partial Thromb; Complete Time: 18:04 EDNM 09/16 18:07 Order name: Troponin High Sensitivity; Complete Time: 18:13 EDMS 09/16 18:07 Order name: NT PRO-BNP; Complete Time: 18:13 EDMS 09/16 18:54 Order name: RAD; Complete Time: 18:55 EDMS 09/16 15:44 Order name: EKG; Complete Time: 15:45 kb 09/16 15:44 Order name: IV Start; Complete Time: 16:24 kb 09/16 15:44 Order name: EKG - Nurse/Tech; Complete Time: 16:24 kb EC:24 Rate is 60 beats/min. Rhythm is regular. QRS [place] is Normal. QRS interval is normal at kb 168 msec. QT interval is normal at 530 msec. Administered Medications: No medications were administered Disposition Summary: 09/16/24 16:45 Hospitalization Ordered Notes: Hospitalization Status: Observation Provider: Hira Jara Location: Telemetry/MedSurg (observation) kb Condition: Stable kb Problem: new kb Symptoms: are unchanged kb Bed/Room Type: Standard Room Assignment: 204(09/16/24 17:17) bd Diagnosis - Impacted fracture, left femur kb Forms: - Medication Reconciliation Form kb - SBAR form kb - Leadership Thank You Letter kb Addendum: 09/18/2024 07:35 Co-signature as Attending Physician, Alonso Jara MD I reviewed the patient's care r n provided by the Advanced Practice Provider and agree with the diagnosis and treatment plan. Signatures: Dispatcher [employer] Johana Larson, CHECKER/STOCKER-C CHECKER/STOCKER-Ckb Allyssa Wolfe Roman, MD MD rn Elham Xiong RN RN me1 Corrections: (The following items were deleted from the chart) 09/16 17:17 16:45 kb bd
--- NOTE | 2024-09-16 16:46 | ER ---
Nurse's Notes [facility] Name: Walter Sanz Age: 89 yrs Sex: Male : 1935 Arrival Date: 09/16/2024 Time: 14:48 Bed 15 Private MD: Diagnosis: Impacted fracture, left femur Presentation: 09/16 15:28 Chief complaint: Spouse and/or significant other states: trip and fall over a week ago. me1 c/o pain to left leg/hip. Was sent by for xray today and then sent to the ER for hip fracture. Hx of dementia. Coronavirus screen: Vaccine status: Patient reports receiving the 2nd dose of the covid vaccine. Ebola Screen: No symptoms or risks identified at this time. Initial Sepsis Screen: Does the patient meet any 2 criteria? No. Patient's initial sepsis screen is negative. Does the patient have a suspected source of infection? No. Patient's initial sepsis screen is negative. Risk Assessment: Do you want to hurt yourself or someone else? Patient reports no desire to harm self or others. Onset of symptoms is unknown. 15:28 Method Of Arrival: Ambulatory me1 15:28 Acuity: SHI 3 me1 Historical: - Allergies: 15:30 PENICILLINS; me1 15:30 Morphine; me1 - PMHx: 15:30 Dementia; Hypertensive disorder; kidney problem; Pacemaker; skin cancer; me1 - PSHx: 15:30 pacemaker; me1 - Immunization history:: Adult Immunizations up to date. - Infectious Disease History:: Denies. - Social history:: Smoking status: Patient denies any tobacco usage or history of. Screenin:15 [facility] ED Fall Risk Assessment (Adult) History of falling in the last 3 months, jl7 including since admission Yes- single mechanical fall (1 pt) Confusion or Disorientation Yes (5 pts) Intoxicated or Sedated No (0 pts) Impaired Gait Yes (1 pt) Mobility Assist Device Used Yes (1 pt) Altered Elimination No (0 pt) Score/Fall Risk Level 3 or more points = High Risk Oriented to surroundings, Maintained a safe environment, Assessed \\T\\ reinforced patient's understanding of fall precautions, Hourly rounding (assess needs \\T\\ fall precautionary measures) done, Utilized family, sitter, or virtual loan assistant as indicated. Abuse screen: Denies threats or abuse. Denies injuries from another. Nutritional screening: No deficits noted. Tuberculosis screening: No symptoms or risk factors identified. Assessment: 15:30 General: Appears in no apparent distress. uncomfortable, Behavior is calm, cooperative. jl7 Pain: Complains of pain in left leg Quality of pain is described as pt unable to describe pain at this time. at bedside reports "He just hasn't been able to walk on it.". Neuro: Bailey Agitation-Sedation Scale (RASS): 0 - Alert and Calm Level of Consciousness is awake, alert, obeys commands, Oriented to person. Cardiovascular: Patient's skin is warm and dry. Respiratory: Airway is patent Respiratory effort is even, unlabored, Respiratory pattern is regular, symmetrical. Derm: Skin is pink, warm \\T\\ dry. Musculoskeletal: Swelling absent ASSISTED PT FROM WHEELCHAIR TO BED, PT UNABLE TO BEAR WEIGHT ON LEFT LEG AT THIS TIME. 16:00 Reassessment: Pt's assisted pt with urinal, brief checked, pt clean and dry at [facility] this time. 17:00 Reassessment: Patient appears in no apparent distress at this time. No changes from [facility] previously documented assessment. Patient and/or family updated on plan of care and expected duration. Pain level reassessed. 18:15 Reassessment: Patient appears in no apparent distress at this time. No changes from [facility] previously documented assessment. Patient and/or family updated on plan of care and expected duration. Pain level reassessed. Pt's remains at bedside, pt denies discomfort, awaiting transport to hospital room at this time. Vital Signs: 15:28 BP 146 / 86; Pulse 60; Resp 18; Temp 98.4; Pulse Ox 100% ; Weight 63.5 kg; Height 5 ft. me1 8 in. ; Pain 7/10; 17:15 BP 140 / 67; Pulse 66; Resp 18; Pulse Ox 99% ; jl7 19:05 BP 148 / 65; Pulse 66; Resp 18; Pulse Ox 99% on R/A; Pain 0/10; rg5 15:28 Body Mass Index 21.29 (63.50 kg, 172.72 cm) me1 15:28 Pain Scale: Adult me1 19:05 Pain Scale: Adult rg5 ED Course: 14:51 Patient arrived in ED. im 14:59 Johana Lyons FNP-C is [facility]. kb 14:59 Alonso Jara MD is Attending Physician. kb 15:30 Triage completed. me1 15:30 Arm band placed on Patient placed in an exam room. me1 15:32 Felicitas Steele, RN is Primary Nurse. jl7 16:00 Patient has correct armband on for positive identification. Placed in gown. Bed in low jl7 position. Call light in reach. Side rails up X2. Adult w/ patient. Provided Education on: use of call jade. Client placed on continuous cardiac and pulse oximetry monitoring. NIBP monitoring applied. 16:00 Warm blanket given. jl7 16:24 Initial lab(s) drawn, by me, sent to lab. EKG done, by ED staff, reviewed by Alonso Jara MD. Inserted saline lock: 22 gauge in right forearm, using aseptic technique. Blood collected. Flushed with 10 mL NS. 16:30 Warm blanket given. jl7 16:45 Hira Jara MD is Hospitalizing Provider. kb 17:20 Warm blanket given. jl7 18:00 No provider procedures requiring assistance completed. Patient admitted, IV remains in jl7 place. intact, No redness/swelling at site. Administered Medications: No medications were administered Medication: 17:15 VIS not applicable for this client. jl7 Outcome: 16:45 Decision to Hospitalize by Provider. kb 19:30 Admitted to Med/surg accompanied by tech, via stretcher, rg5 19:30 Condition: stable 19:30 Instructed on the need for admit, 19:32 Patient left the ED. rg5 Signatures: Johana Lyons FNP-C CASTING CARRIER-Ckb Felicitas Steele, RN RN jl7 Jacqueline Fitch Michelle RN RN me1 Shree Liriano, RN RN rg5
[2024-09-16] MEDS ORDERED: TRAMADOL HCL 50 MG TAB PO PRN (17:14)
[2024-09-16] MEDS ORDERED: HYDROMORPHONE HCL 1 MG/ML INJ IV PRN (17:14)
[2024-09-16] MEDS ORDERED: HYDRALAZINE HCL 20 MG/ML VIAL IV PRN (17:24)
[2024-09-16] MEDS ORDERED: HYDROMORPHONE HCL 0.5 MG/0.5 ML INJ IV PRN (17:32)
--- NOTE | 2024-09-16 17:39 | P.HP ---
Certification for Inpatient Patient admitted to: Inpatient With expected LOS: >2 Midnights Patient will require the following post-hospital care: None Practitioner: I am a practitioner with admitting privileges, knowledge of patient current condition, hospital course, and medical plan of care. Services: Services provided to patient in accordance with Admission requirements found in Title 42 Section 412.3 of the Code of Federal Regulations Patient History Date of Service: 09/16/24 Reason for admission: LEFT hip fx History of Present Illness: 89-year-old male with history of hypertension, atrial fibrillation with pacemaker in place, upper extremity DVT, CKD, dementia, insomnia presents to the emergency department chief complaint of left hip pain. His reports that he sustained a mechanical fall about 2 weeks ago and since then has been nonweightbearing with pain to the left leg. He had an outpatient x-ray today that showed a left hip fracture. He was referred to the emergency department for further evaluation. Prior to this injury patient was ambulatory without assistive devices from bedroom to bathroom/kitchen without assistance. Patient is oriented x 1 at baseline, he does take Xarelto at home. Patient was valuated in the emergency department his labs were significant for an elevated creatinine of 2.94 which is higher than his baseline white blood count 12.6 and hemoglobin of 9.1. Outpatient x-ray reviewed shows left impacted femur fracture. Patient will be admitted for femur fracture, acute kidney injury Allergies Penicillins Allergy (Verified 11/30/16 08:32) Rash morphine Adverse Reaction (Verified 11/30/16 08:32) "makes me wired" Home Medications: Metoprolol Tartrate 100 mg PO BID 11/30/16 Mv-Min/FA/Vit K/Lycop/Lut/Zeax [Ocuvite Eye Plus Multi Tablet] 1 each PO DAILY 11/30/16 Tramadol HCl [Ultram] 50 mg PO BIDP PRN 11/30/16 Atorvastatin Calcium 40 mg PO DAILY 12/20/23 Donepezil HCl 10 mg PO BEDTIME 12/20/23 Furosemide [Lasix*] 20 mg PO DIRECTED 12/20/23 Memantine HCl 5 mg PO BID 12/20/23 Thiamine HCl [Vitamin B-1] 500 mg PO DAILY 12/20/23 Trazodone [Desyrel*] 50 mg PO BEDTIME 12/20/23 Amlodipine [Norvasc*] 5 mg PO DAILY tab 12/21/23 Aspirin [Aspirin EC 81 MG] 81 mg PO DAILY 02/27/24 Rivaroxaban [Xarelto] 20 mg PO DAILY 02/27/24 calcitrioL [Rocaltrol] 1 cap PO SEECOM 02/27/24 - Past Medical/Surgical History Diabetic: Yes -: Hypertension -: Blood clot R arm -: Afib -: CKD -: Prostatectomy -: Cataract surgery -: Neck surgery -: Bilateral foot surgery Psychosocial/ Personal History: Lives at home with - Social History Alcohol use: No CD- Drugs: No Caffeine use: No Place of Residence: Home Review of Systems is unable to be obtained Physical Examination - Physical Exam General: Alert, In no apparent distress, Oriented x1 HEENT: Atraumatic, PERRLA, EOMI Neck: Supple, 2+ carotid pulse no bruit, No LAD Respiratory: Clear to auscultation bilaterally, Normal air movement Cardiovascular: Regular rate/rhythm, Normal S1 S2 Gastrointestinal: Normal bowel sounds, No tenderness Musculoskeletal: Swelling (LLE swelling (from previous foot sx)) Integumentary: No rashes Neurological: Normal speech, Normal strength at 5/5 x4 extr, Normal affect - Studies Laboratory Data (last 24 hrs) 09/16/24 09/16/24 16:21 16:21 WBC 12.60 H Hgb 9.1 L Hct 27.1 L Plt Count 215 Sodium 138 Potassium 4.7 BUN 70 H Creatinine 2.94 H Glucose 112 H Assessment and Plan - Plan Assessment: Left hip fracture JULIO on CKD History of atrial fibrillation/upper extremity DVT on chronic anticoagulation Pacemaker in place Hypertension Dementia Plan: Left hip fracture JULIO on CKD History of atrial fibrillation/upper extremity DVT on chronic anticoagulation Pacemaker in place Orthopedics consulted Last took Xarelto evening of 09/15 Cardiology consulted for perioperative assessment Nephrology consulted given acute kidney injury Gentle IV fluids overnight, recheck chemistry in the morning Will obtain chest x-ray, troponin, BNP Continue heparin drip for now for anticoagulation given JULIO and need for anticoagulation Ambulatory from bedroom around the house at baseline without assistive devices Hypertension Continue home medications when verified Dementia Oriented x 1 at baseline DVT PPX: Heparin drip Code status: Full code Discharge Plan: Home Plan to discharge in: Greater than 2 days - Advance Directives Does patient have a Living Will: No Does patient have a Durable POA for Healthcare: No - Code Status/Comfort Care Code Status Assessed: Yes (Full code) Critical Care: No Time Spent Managing Pts Care (In Minutes): 65
[2024-09-16 18:04] LABS: PT Prothrombin Time 24.6 SECONDS (10-13.0); PTT, Activated Partial Thromb 31.2 SECONDS (27.2-37.4); Protime INR 2.24
[2024-09-16 18:07] LABS: Troponin High Sensitivity 35.5 pg/mL (<58.9)
--- NOTE | 2024-09-16 18:54 | RAD REPORT ---
EXAMINATION: ONE VIEW CHEST XR CLINICAL INDICATION: Male, 89 years old.,periop assessment. Hypertension TECHNIQUE: Frontal chest projection is submitted. Examination is limited by patient positioning and t echnique. COMPARISON: 05/03/2020. FINDINGS: The lungs are well inflated and clear. No pneumothorax or sizable effusion. The heart is normal in s ize. Mediastinal contours are unremarkable. IMPRESSION: No acute intrathoracic abnormalities.
[2024-09-16 20:18] VITALS: BMI 21.4
[2024-09-16] MEDS: HEPARIN/D5W 25,000 UNIT/500 ML BAG IV SCH (21:49)
[2024-09-16] MEDS: NA CHLORIDE 0.9% 1,000 ML IV SCH (21:49)
[2024-09-17] MEDS: DONEPEZIL HCL 5 MG TAB PO ONE (00:50)
[2024-09-17] MEDS: TRAZODONE 50 MG TABLET PO ONE (00:50)
[2024-09-17] MEDS: MEMANTINE HCL 10 MG TABLET PO ONE (00:51)
[2024-09-17] MEDS: METOPROLOL TAR 50 MG TAB PO ONE (00:51)
[2024-09-17 04:12] LABS: Absolute Basophils 0.1 K/uL (0-0.5); Absolute Eosinophils 0.1 K/uL (0-0.5); Absolute Lymphocytes (CBC) 1.4 K/uL (0.7-4.9); Absolute Monocytes 0.9 K/uL (0.1-1.3); Absolute Neutrophil 6.9 K/uL (1.8-8.0); Basophils % 0.6 % (0-1.3); Eosinophils % 0.6 % (0-4.4); Hematocrit 22.5 % (39.6-49.0); Hemoglobin 7.8 g/dL (13.6-17.9); Lymphocytes % 15.3 % (15.3-44.8); MCH 32.8 pg (27.0-35.0); MCHC 34.8 g/dL (32.0-36.0); MCV 94.5 fL (80-100); MPV 8.4 fL (7.6-11.3); Monocytes % 9.8 % (3.3-12.3); Neutrophils % 73.7 % (41.7-73.7); Platelets 188 thou/uL (152-406); RBC Red Blood Cell Count 2.38 M/uL (4.33-5.43); Red Cell Distribution Width 14.8 % (12.1-15.2)
[2024-09-17 04:32] LABS: Anion Gap 11.1 mEq/L (5.0-15.0); Potassium 4.1 mEq/L (3.5-5.1)
[2024-09-17] MEDS ORDERED: RIVAROXABAN 20 MG TABLET PO SCH (09:00)
[2024-09-17] MEDS: FUROSEMIDE 20 MG TABLET PO SCH (09:56)
[2024-09-17] MEDS: ASPIRIN EC 81 MG TAB PO SCH (09:56)
[2024-09-17] MEDS: ATORVASTATIN 40 MG TAB PO SCH (09:57)
[2024-09-17] MEDS: VALSARTAN 160 MG TAB PO SCH (09:57)
[2024-09-17] MEDS: CALCITROL 0.25 MCG CAP PO SCH (09:57)
[2024-09-17] MEDS: MEMANTINE HCL 10 MG TABLET PO SCH (09:58)
--- NOTE | 2024-09-17 10:27 | P.CNS ---
Date of Consult: 09/17/24 Chief Complaint: LEFT hip fx History of Present Illness: Patient with PMH of atrial fibrillation s/p PM placement, presented with genrlaized weakness, immobility, recent fall and hip fracture, cardiology were consulted for preoperative clearance, patient is laying comfortable in bed, denies chest pain, no palpitations, no SOB, no syncope. Allergies Penicillins Allergy (Verified 11/30/16 08:32) Rash morphine Adverse Reaction (Verified 11/30/16 08:32) "makes me wired" Home medications list reviewed: Yes Home Medications: Metoprolol Tartrate 100 mg PO BID 11/30/16 Atorvastatin Calcium 40 mg PO DAILY 12/20/23 Donepezil HCl 10 mg PO BEDTIME 12/20/23 Furosemide [Lasix*] 40 mg PO DIRECTED 12/20/23 Memantine HCl 5 mg PO BID 12/20/23 Trazodone [Desyrel*] 50 mg PO BEDTIME 12/20/23 Aspirin [Aspirin EC 81 MG] 81 mg PO DAILY 02/27/24 Rivaroxaban [Xarelto] 20 mg PO DAILY 02/27/24 calcitrioL [Rocaltrol] 1 cap PO DAILY 02/27/24 Amlodipine Bes/Olmesartan Med [Geraldo 10-40 mg Tablet] 1 each PO DAILY 09/17/24 Potassium Chloride 10 meq PO Q12H 09/17/24 - Past Medical/Surgical History Diabetic: Yes -: Hypertension -: Blood clot R arm -: Afib -: CKD -: Prostatectomy -: Cataract surgery -: Neck surgery -: Bilateral foot surgery Psychosocial/ Personal History: Lives at home with - Social History Smoking Status: Former smoker Alcohol use: No CD- Drugs: No Caffeine use: No Place of Residence: Home Review of Systems 10-point ROS is otherwise unremarkable Physical Examination Temp Pulse Resp BP Pulse Ox 98.1 F 62 12 125/61 93 09/17/24 08:00 09/17/24 08:00 09/17/24 08:00 09/17/24 08:00 09/17/24 08:00 General: Alert, In no apparent distress HEENT: Atraumatic, PERRLA, Mucous membr. moist/pink, EOMI, Sclerae nonicteric Neck: Supple, 2+ carotid pulse no bruit, No LAD, Without JVD or thyroid abnormality Respiratory: Clear to auscultation bilaterally, Normal air movement Cardiovascular: Regular rate/rhythm, Normal S1 S2 Gastrointestinal: Normal bowel sounds, No tenderness Musculoskeletal: No tenderness Integumentary: No rashes Neurological: Normal gait, Normal speech, Normal tone, Normal affect Lymphatics: No axilla or inguinal lymphadenopathy Laboratory Data (last 24 hrs) 09/16/24 09/16/24 16:21 16:21 WBC 12.60 H Hgb 9.1 L Hct 27.1 L Plt Count 215 Sodium 138 Potassium 4.7 BUN 70 H Creatinine 2.94 H Glucose 112 H - Problems (1) Preoperative clearance Current Visit: Yes Status: Acute Plan: Patient is not having any active cardiac symptoms, patient had a recent echo that shows normal EF, normal bang motion patient is cleared as low to moderate cardiac risk. no further cardiac work up needed prior to surgery cardiology will sign off, please call with any questions (2) Atrial fibrillation Current Visit: Yes Status: Acute Plan: patient EKG shows paced rhythm continue lopressor 100 mg po BID Ok to hold Xarelto until after surgery.
[2024-09-17] MEDS: AMLODIPINE 10 MG TAB PO SCH (12:24)
[2024-09-17] MEDS: METOPROLOL TAR 50 MG TAB PO SCH (12:24)
--- NOTE | 2024-09-17 12:36 | CON ---
Date of Consultation: 09/17/2024 Reason For Consultation: Elevated BUN and creatinine, fluid management. 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 Upon arrival to the hospital, found to have elevation in BUN and creatinine, creatinine 2.9, GFR of 20. For that reason, we have been consulted. The patient denied taking any nonsteroidal. No recent change in his medication. Patient was last seen in the office in June. Past Medical History: Include: 1. Hypertension. 2. Hyperlipidemia. 3. 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 Baseline creatinine 2.3, GFR 27 as of June 2024. 4. Hyperlipidemia. 5. DVT. 6. CAD. Allergies: TO PENICILLIN AND MORPHINE. Home Medications: Include: 1. Metoprolol. 2. Tramadol. 3. Multivitamin. 4. tylenol . 5. Lasix. 6. Namenda. 7. Thiamine. 8. Trazodone. 9. Aspirin. 10. Amlodipine. 11. Xarelto. 12. Calcitriol. Past Surgical History: Includes neck surgery, cataract, prostatectomy, foot surgery. Social History: Denied smoking. Denied drinking. Denied drugs abuse. Review of Systems: Head and Neck: No red eye. No ear pain. GI: No nausea. No vomiting. : No polyuria. No dysuria. No hematuria. DOG BARBER: Not applicable. Respiratory: No shortness of breath. Cardiovascular: No chest pain. Endocrine: No polydipsia. Skin: No rash. Neuro: Has fall. Musculoskeletal: Has hip pain. Physical Examination: General: When I saw the patient, the patient lying in bed. Vital Signs: Blood pressure 125/61, pulse of 62. Chest: Clear to auscultation. Heart: S1, S2. Systolic murmur. Abdomen: Soft, nontender. Extremities: No edema. Neurologic: Alert. No focality. Laboratory Data: Yesterday, creatinine 2.9, GFR 20. Today, sodium 141, potassium 4.1, bicarb 23, BUN 72, creatinine 2.7, GFR 22. BNP 2800. WBC 9.4, hemoglobin 7.8. Current Medications: The patient on include aspirin, amlodipine 10 mg, metoprolol, valsartan, trazodone, IV fluid at 75 per hour, tramadol. Assessment And Plan: 1. Acute kidney injury secondary to prerenal, dehydration, on the recovery phase. Rhabdo has been ruled out. Chest x-ray does not show any overvolume. I am going to order a renal ultrasound. We will discontinue valsartan and we will follow up the patient closely. 2. Hypertension with the presence of acute kidney injury. Discontinue valsartan. Discontinue Lasix. 3. Anemia of chronic kidney disease/blood loss secondary to fracture. We will send for the workup. 4. Hip fracture. Continue current treatment. Follow up with the Primary. Please avoid nonsteroidals for pain control. 5. Coronary artery disease, atrial fibrillation. As by Cardiology. Time spent exam the patient [id number] reviewing the data lab and the radiology placing order discuss the case with the patient discussing the case with the senior engineering team leader including nursing and hospitalist more than 75 minutes ISAAK Voice ID: [id number] Report ID: [id number] MORRIS
--- NOTE | 2024-09-17 13:21 | P.PN ---
Date of Service: 09/17/24 Subjective: No acute events overnight Denies complaints at this time ROS: 10 point ROS as noted above, otherwise negative Physical exam GEN: Alert, oriented x1-2, NAD HEENT: Normal conjunctiva, sclera anicteric CV: Regular rate and rhythm, no edema Pulm: Nonlabored respirations on room air ABD: Soft, nontender, nondistended MSK: No joint tenderness, swelling to left lower extremity from previous surgery Integumentary: No rashes Neuro: Normal speech, normal affect Vitals reviewed Assessment: Left hip fracture JULIO on CKD History of atrial fibrillation/upper extremity DVT on chronic anticoagulation Pacemaker in place Hypertension Dementia Plan: Left hip fracture JULIO on CKD History of atrial fibrillation/upper extremity DVT on chronic anticoagulation Pacemaker in place Orthopedics consulted Last took Xarelto evening of 09/15 Cardiology consulted for perioperative assessment-intervention prior to surgery Nephrology consulted given acute kidney injury Gentle IV fluids overnight, recheck chemistry in the morning Continue heparin drip for now for anticoagulation given JULIO and need for anticoagulation-heparin on hold in anticipation of surgery Ambulatory from bedroom around the house at baseline without assistive devices Likely surgical intervention tomorrow Hypertension Continue home medications when verified Dementia Oriented x 1 at baseline DVT PPX: Heparin drip Code status: Full code Discharge Plan: Home Plan to discharge in: Greater than 2 days Time Spent Managing Pts Care (In Minutes): 35
--- NOTE | 2024-09-17 18:29 | RAD REPORT ---
EXAMINATION: US RENAL CLINICAL INDICATION: Acute renal insufficiency TECHNIQUE: Real-time ultrasonography of the kidneys performed. COMPARISON 2023. FINDINGS: Right kidney measures 7 cm with a normal echotexture. Suboptimal evaluation of a cystic mass right ki dney measuring 2 cm. Evaluation of the left kidney is nondiagnostic secondary to difficulty with patient positioning. No h ydronephrosis No gross abnormality bladder. IMPRESSION: 2 cm cystic mass right kidney is suboptimally evaluated on this exam. Nondiagnostic sonogram left kidney. No hydronephrosis right kidney.
[2024-09-17] MEDS: TRAZODONE 50 MG TABLET PO SCH (20:31)
[2024-09-17] MEDS: DONEPEZIL HCL 5 MG TAB PO SCH (20:31)
[2024-09-17 22:07] LABS: Specific Gravity 1.011 (1.005-1.030); Urine Bilirubin NEGATIVE (Negative); Urine Blood Negative (Negative); Urine Clarity Clear (Clear); Urine Color Colorless (Yellow); Urine Glucose NEGATIVE (Negative); Urine Ketones NEGATIVE (Negative); Urine Microscopic Reflex YN NO UMIC; Urine Nitrite NEGATIVE (Negative); Urine Protein NEGATIVE (Negative); Urine Urobilinogen Normal (Normal)
[2024-09-17 22:15] LABS: UR PROTEIN 9.5 mg/dL (<11.9); Urine Protein/Creatinine Ratio 0.26 ratio (<0.15)
--- NOTE | 2024-09-17 23:54 | CON ---
Date of Consultation: 09/17/2024 Reason For Consultation: Left hip pain. History Of Present Illness: Walter is an 89-year-old male presented to the ER after having x-rays jr t demonstrated displaced left femoral neck fracture. The patient had a fall approximately 2 weeks ag o with subsequent inability to bear weight in his left lower extremity. The patient had outpatient x -rays that demonstrated a left displaced femoral neck fracture and was referred to the ER. The patie nt normally uses no assist devices to mobilize. The patient has past medical history of atrial fibri llation with hypertension, chronic kidney disease, dementia, and history of a DVT. Denies any other musculoskeletal complaints at this time. Review of Systems: As above, otherwise negative. Past Medical History: Includes diabetes, hypertension, atrial fibrillation, chronic kidney disease. Past Surgical History: Includes prostatectomy, cataract surgery, neck surgery, and bilateral foot felix rgery. Medications: Home medications include metoprolol, multivitamin, Tylenol, donepezil, furosemide, colby ntine, multivitamin, thiamine, trazodone, amlodipine, aspirin, Xarelto, and calcitriol. Allergies: TO PENICILLIN AND MORPHINE. Social History: Lives at home. Denies tobacco or alcohol use. Physical Examination: General: No apparent distress. HEENT: Normocephalic, atraumatic. Neck: Supple. Cardiovascular: Brisk cap refill to all digits. Chest: Nonlabored breathing. Abdomen: Nondistended. Psychiatric: Responsive to exam. Musculoskeletal: Bilateral upper extremities functional range of motion without pain. No gross defo rmities. No obvious dislocations. Right lower extremity, functional range of motion without pain. No gross deformities. No obvious dislocations. Left lower extremity, pain with range of motion of l eft hip. No tenderness over the knee, tibia, foot or ankle. Sensation grossly intact to the dorsal and plantar foot. Positive ankle dorsiflexion and plantar flexion. Diagnostic Studies: X-rays of left hip demonstrated a displaced left femoral neck fracture. Assessment And Plan: Mr. Sanz is an 89-year-old male with a left displaced femoral neck fracture . I discussed with the patient and his as well as his family risks, benefits associated with op erative and nonoperative treatment measures. Given his displaced unstable fracture pattern, recommen d left hip hemiarthroplasty. Risks and benefits associated with the procedure were discussed with th e patient and his family at length and they expressed understanding. We will proceed with left hip h emiarthroplasty tomorrow. We will discontinue the heparin drip to plan for surgery and the patient w ill be n.p.o. after midnight. We will await further evaluation by the Cardiology and Nephrology team for preoperative medical optimization and clearance. CV/MODL Voice ID: [id number] Report ID: [id number]
[2024-09-18 06:01] LABS: Absolute Eosinophils 0.1 K/uL (0-0.5); Absolute Lymphocytes (CBC) 1.4 K/uL (0.7-4.9); Absolute Monocytes 0.8 K/uL (0.1-1.3); Absolute Neutrophil 8.9 K/uL (1.8-8.0); Basophils % 0.3 % (0-1.3); Eosinophils % 0.5 % (0-4.4); Hematocrit 22.6 % (39.6-49.0); Hemoglobin 7.8 g/dL (13.6-17.9); Lymphocytes % 12.7 % (15.3-44.8); MCH 32.9 pg (27.0-35.0); MCHC 34.5 g/dL (32.0-36.0); MCV 95.3 fL (80-100); MPV 8.6 fL (7.6-11.3); Monocytes % 7.4 % (3.3-12.3); Neutrophils % 79.1 % (41.7-73.7); Platelets 200 thou/uL (152-406); RBC Red Blood Cell Count 2.37 M/uL (4.33-5.43); Red Cell Distribution Width 14.8 % (12.1-15.2)
[2024-09-18 06:50] LABS: Albumin 2.1 g/dL (3.4-5.0); Anion Gap 11.6 mEq/L (5.0-15.0); BUN Blood Urea Nitrogen 60 mg/dL (7-18); Bicarbonate 22 mEq/L (21-32); Ferritin 261.4 ng/mL (26-388); Glomerular Filtration Rate 26 ml/min (=/>90); Glucose Level 100 mg/dL (74-106); Phosphorus 3.2 mg/dL (2.5-4.9); Potassium 3.6 mEq/L (3.5-5.1); Sodium Level 143 mEq/L (136-145); Transferrin 110 mg/dL (200-360); Uric Acid 9.3 mg/dL (3.5-7.2)
[2024-09-18] MEDS ORDERED: NA CHLORIDE 0.9% 250 ML IV SCH (07:00)
[2024-09-18 08:06] LABS: PT Prothrombin Time 13.7 SECONDS (10-13.0); PTT, Activated Partial Thromb 26.4 SECONDS (27.2-37.4); Protime INR 1.21
--- NOTE | 2024-09-18 08:41 | EKG ---
Test Date: 2024-09-16 Test Time: 16:03:58 Jewelry Sales Representative: EUGENE MEASUREMENT RESULTS: Intervals: Rate: 60 NC: QRSD: 168 QT: 530 QTc: 530 [place]: P: NC: QRS: -85 T: 88 INTERPRETIVE STATEMENTS: AV dual-paced rhythm Abnormal ECG Compared to ECG 08/19/2024 14:19:44 No significant changes Electronically Signed On 09-18-24 08:37:02 CDT by Dawson Delarosa
[2024-09-18] MEDS: NA CHLORIDE 0.9% 250 ML ONE (09:30)
[2024-09-18] MEDS: Ringers Lactate 1,000 ML IV ONE (10:31)
[2024-09-18] MEDS ORDERED: propofoL 200 MG/20 ML VIAL IV ONE (10:46)
[2024-09-18] MEDS ORDERED: FENTANYL CITR 100 MCG/2 ML ONE ×2 (10:46→13:45)
[2024-09-18] MEDS ORDERED: ONDANSETRON 4 MG/2 ML VIAL ONE (10:46)
[2024-09-18] MEDS ORDERED: LIDOCAINE 2% MPF 5 ML VIAL ONE (10:46)
[2024-09-18] MEDS: TRANEXAMIC ACID 1,000 MG/10 ML VIAL IV ONE (11:25)
[2024-09-18] MEDS ORDERED: EPHEDRINE SULF 50 MG/ML VIAL ONE (11:31)
[2024-09-18] MEDS ORDERED: dexAMETHasone 4 MG/ML VIAL ONE (11:37)
[2024-09-18] MEDS: CEFAZOLIN SODIUM 1 GM/VIAL ONE (11:55)
--- NOTE | 2024-09-18 13:06 | P.PN ---
Date of Service: 09/18/24 Subjective: No acute events overnight Denies complaints at this time Hgb dropped to 7.8 ROS: 10 point ROS as noted above, otherwise negative Physical exam GEN: Alert, oriented x1-2, NAD HEENT: Normal conjunctiva, sclera anicteric CV: Regular rate and rhythm, no edema Pulm: Nonlabored respirations on room air ABD: Soft, nontender, nondistended MSK: No joint tenderness, swelling to left lower extremity from previous surgery Integumentary: No rashes Neuro: Normal speech, normal affect Vitals reviewed Assessment: Left hip fracture JULIO on CKD History of atrial fibrillation/upper extremity DVT on chronic anticoagulation Pacemaker in place Hypertension Dementia Plan: Left hip fracture JULIO on CKD History of atrial fibrillation/upper extremity DVT on chronic anticoagulation Pacemaker in place Orthopedics consulted-plan for surgery 09/18 Last took Xarelto evening of 09/15 Cardiology consulted for perioperative assessment-no intervention prior to surgery Nephrology consulted given acute kidney injury-following Gentle IV fluids overnight, recheck chemistry in the morning Ambulatory from bedroom around the house at baseline without assistive devices Resume xarelto when OK with surgery Hypertension Continue home medications when verified Dementia Oriented x 1 at baseline DVT PPX: Heparin drip Code status: Full code Discharge Plan: Home Plan to discharge in: Greater than 2 days Time Spent Managing Pts Care (In Minutes): 35
--- NOTE | 2024-09-18 13:48 | P.BOP ---
Preoperative diagnosis: Left femoral neck fracture Postoperative diagnosis: Same Primary procedure: Left hip hemiarthroplasty Dental Technologist: NONE,NONE Estimated blood loss: 100 cc Specimen: Left femoral head Findings: See dictation Anesthesia: General Complications: None Drain(s): Urinary catheter Implants: Biomet Aurora 52 shell, 28 standard head, 11 echo stem Fluids & blood products: per anesthesia record Transferred to: Recovery Room Condition: Good
[2024-09-18] MEDS ORDERED: ONDANSETRON 4 MG/2 ML VIAL IV PRN (14:15)
[2024-09-18] MEDS ORDERED: DOCUSATE NA 100 MG CAP PO PRN (14:15)
[2024-09-18 14:46] LABS: Hematocrit 27.6 % (39.6-49.0); Hemoglobin 9.2 g/dL (13.6-17.9)
--- NOTE | 2024-09-18 15:03 | RAD REPORT ---
Exam:Hip Left 2 View HISTORY: Left hip surgery FINDINGS: Postsurgical changes left hip arthroplasty. Prosthesis in good position. No fracture or dislocation
[2024-09-18] MEDS: CEFAZOLIN 1 GM in NA CHLORIDE 0.9% 50 ML IVPB SCH (17:49)
--- NOTE | 2024-09-18 19:48 | P.OP ---
Preoperative diagnosis: Left femoral neck fracture Postoperative diagnosis: left femoral neck fracture Primary procedure: Left hip hemiarthroplasty Anesthesia: General Estimated blood loss: 100 cc Specimen: Left femoral head Findings: See dictation Operative Technique: Indication For Procedure: Walter is an 89-year-old male who presented to the ER after sustaining a fall with subsequent pain in the left hip. Imaging demonstrated displaced left femoral neck fracture. Risks and benefits associated with the procedure were discussed with the patient and his family at length and they expressed understanding and elected to proceed with operative treatment. Description Of Procedure: After informed consent was obtained, the patient was identified in the preoperative holding area. The left lower extremity was marked. The patient was then brought back to the operative room, transferred tothe operative table in supine fashion and placed under general endotracheal anesthesia. He was then placed in the right lateral decubitus position. The left lower extremity was then prepped and draped in usual sterile fashion. A time-out was initiated. The correct patient and procedure confirmed and identified. The patient did receive preoperative prophylactic antibiotics. Approximately, a 10 cm curvilinear incision was made centered over the greater trochanter consistent with the posterior approach to the left hip. Dissection was then taken down to the tensor fascia rosalio, which was split in line with the incision. Finally, retractors were placed and blunt dissection was then taken down to the short external rotators, which were tagged using #5 Ethibond. A T-shaped capsulotomy was performed. The femoral head was removed and sized at a 52 mm. A trial head was then placed with good overall fit. Trial was then removed. Next, attention was taken on preparation of the proximal femur. A rongeur was used to remove any fracture fragments as this was a subcapital type fracture. To get exposure, a first cookie cutter was placed followed by canal finder and the lateralizer. The femoral canal was then reamed sequentially from 7 mm to the size 12 mm, followed by broaching and 1 mm increments to a size 12 mm broach. A calcar planer was then used to clean up the calcar. The hip was then reduced and a size 52 by 0 mm standard neck length was selected with good overall leg length and stability. Trial implants were removed. The hip was then irrigated thoroughly with pulse lavage. A cement bone plug was then placed distally to 160 mm followed by cement was then prepared on the back table using a cement gun and then placed down the femoral canal. After the stent was placed, a size 11 mm Echo Fracture stem was placed with adequate version noted until the cement was hardened. Next, a trial implants were then used to gain size 52 mm shell and a 0 mm standard head and neck length. There was good overall leg length and stability noted. Final implants were placed using a 52 mm acetabular shell and a 28 x 0 mm standard head. Hip was then again reduced and there was overall stability and leg length noted. Wounds were then irrigated thoroughly with normal saline. Capsule was then approximated using #5 Ethibond, and the tensor fascia rosalio was approximated using #1 Vicryl and the deep tissues approximated using an 0 Vicryl. Subcutaneous tissues approximated with 2-0 Vicryl and skin was approximated using marcellus. Sterile dressings were applied. Patient was placed in an abduction pillow, awakened and transferred to PACU in stable condition. Postoperative Plan: The patient will be weightbearing as tolerated on the left lower extremity with posterior hip precautions. Physical therapy will be consulted to aid with mobilization. Express Manager will be consulted to aid with placement. Complications: None Drain(s): Urinary catheter Implants: Biomet 52 mm acetabular shell, 28 mm standard head, 11 mm Echo stem Fluids & blood products: Per anesthesia record Transferred to: Recovery Room Condition: Good
[2024-09-19 05:34] LABS: Absolute Lymphocytes (CBC) 0.8 K/uL (0.7-4.9); Absolute Monocytes 0.9 K/uL (0.1-1.3); Absolute Neutrophil 16.4 K/uL (1.8-8.0); Hematocrit 29.3 % (39.6-49.0); Hemoglobin 9.5 g/dL (13.6-17.9); Lymphocytes % 4.6 % (15.3-44.8); MCH 30.2 pg (27.0-35.0); MCHC 32.5 g/dL (32.0-36.0); MCV 92.8 fL (80-100); MPV 8.3 fL (7.6-11.3); Monocytes % 4.8 % (3.3-12.3); Neutrophils % 90.6 % (41.7-73.7); Platelets 255 thou/uL (152-406); RBC Red Blood Cell Count 3.16 M/uL (4.33-5.43); Red Cell Distribution Width 17.7 % (12.1-15.2)
[2024-09-19 05:55] LABS: Albumin 2.5 g/dL (3.4-5.0); Anion Gap 16.1 mEq/L (5.0-15.0); Phosphorus 3.4 mg/dL (2.5-4.9); Potassium 4.1 mEq/L (3.5-5.1)
[2024-09-19 10:13] LABS: Anisocytosis 1+; Blood Morphology Comment NOTED (NOT SEEN); Platelet Estimate ADEQ; Platelets Clumped FEW; Polychromasia SLIGHT; White Blood Cell Scan OK (OK)
[2024-09-19 10:15] LABS: ACANTHOCYTE 1+
--- NOTE | 2024-09-19 10:48 | P.PN ---
Subjective Date of Service: 09/19/24 Chief Complaint: Status post left hip hemiarthroplasty Pain controlled Physical Examination - Vital Signs Temperature: 98.3 F Blood Pressure: 154/70 Pulse: 70 Respirations: 12 Pulse Ox (%): 95 - Physical Exam Musculoskeletal: Other (Left lower extremity: Dressing clean dry and intact; positive firing of EHL/FHL/gastrocsoleus complex/tibialis anterior; neurovascular intact distally) Assessment And Plan - Plan Walter is an 89-year-old male status post left hip hemiarthroplasty postoperative day #1 PT to mobilize; weightbearing as tolerated left lower extremity with posterior hip precautions May resume anticoagulation as prescribed preoperatively services clerk to aid with placement as needed Follow-up with Dr. Mtz in 2 weeks for staple removal
--- NOTE | 2024-09-19 14:29 | P.PN ---
Date of Service: 09/19/24 Subjective: No acute events overnight Doing well post op ROS: 10 point ROS as noted above, otherwise negative Physical exam GEN: Alert, oriented x1-2, NAD HEENT: Normal conjunctiva, sclera anicteric CV: Regular rate and rhythm, no edema Pulm: Nonlabored respirations on room air ABD: Soft, nontender, nondistended MSK: No joint tenderness, swelling to left lower extremity from previous surgery Integumentary: No rashes Neuro: Normal speech, normal affect Vitals reviewed Assessment: Left hip fracture surgical repair 09/18 JULIO on CKD History of atrial fibrillation/upper extremity DVT on chronic anticoagulation Pacemaker in place Hypertension Dementia Plan: Left hip fracture S/P surgical repair 09/18 JULIO on CKD History of atrial fibrillation/upper extremity DVT on chronic anticoagulation Pacemaker in place Doing well postoperatively Working with PT Gentle IV fluids for JULIO Nephrology consulted given acute kidney injury-following Ambulatory from bedroom around the house at baseline without assistive devices Orthopedic surgery okay with resuming Xarelto tonight Hypertension Home medications continued Dementia Medications continued Oriented x 1 at baseline DVT PPX: Xarelto Code status: Full code Discharge Plan: retirement facility Plan to discharge in: Greater than 2 days Time Spent Managing Pts Care (In Minutes): 35
[2024-09-19] MEDS: RIVAROXABAN 20 MG TABLET PO SCH (16:51)
[2024-09-19] MEDS: HYDROCODONE/APAP 7.5/325 MG TAB PO PRN (17:26)
--- NOTE | 2024-09-19 22:56 | PN ---
Date of Progress Note: 09/19/2024 Chief Complaint: Elevated BUN and creatinine levels, acute kidney injury. 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 GFR 27. He has also hyperten sulema, DVT. Apparently, he had a fall. Had hip fracture and was admitted to the hospital because of pain. On arrival to the hospital, GFR was 20 and creatinine level of 2.9. The patient was found to have acute kidney injury on advanced chronic kidney disease. He remains nonoliguric. The patient d enied taking any nonsteroidal anti-inflammatory medication. Review of Systems: Denies fever, chills. Physical Examination: Lungs: Clear to auscultation bilaterally. Heart: S1, S2. Abdomen: Soft. Extremities: No edema. Impression And Plan: 1. Acute kidney injury secondary to prerenal azotemia, volume depletion. He is tolerating IV fluids. Renal function is gradually improving. 2. Workup was done to rule out rhabdomyolysis. There is no evidence of rhabdomyolysis. The patient was previously taking valsartan, which is on hold due to acute kidney injury. Renal ultrasound was o rdered to rule out obstructive uropathy and rule out hydronephrosis. 3. Hypertension. Continue to monitor blood pressure. Discontinue Lasix. Discontinue valsartan. 4. Anemia of chronic disease. Workup was started for chronic anemia. 5. Coronary artery disease, atrial fibrillation. The patient is followed by Cardiology. Continue gentle hydration. Lasix will be used as needed. EB/MODL Voice ID: [id number] Report ID: [id number]
[2024-09-20 06:53] LABS: Albumin 2.2 g/dL (3.4-5.0); Anion Gap 13.5 mEq/L (5.0-15.0); Phosphorus 2.6 mg/dL (2.5-4.9); Potassium 3.5 mEq/L (3.5-5.1)
[2024-09-20 06:55] LABS: Absolute Lymphocytes (CBC) 1.5 K/uL (0.7-4.9); Absolute Monocytes 0.8 K/uL (0.1-1.3); Absolute Neutrophil 12.1 K/uL (1.8-8.0); Basophils % 0.2 % (0-1.3); Eosinophils % 0.1 % (0-4.4); Hematocrit 26.1 % (39.6-49.0); Hemoglobin 8.7 g/dL (13.6-17.9); Lymphocytes % 10.6 % (15.3-44.8); MCH 31.4 pg (27.0-35.0); MCHC 33.5 g/dL (32.0-36.0); MCV 93.6 fL (80-100); MPV 7.8 fL (7.6-11.3); Monocytes % 5.3 % (3.3-12.3); Neutrophils % 83.8 % (41.7-73.7); Platelets 222 thou/uL (152-406); RBC Red Blood Cell Count 2.79 M/uL (4.33-5.43)
--- NOTE | 2024-09-20 11:50 | P.PN ---
Date of Service: 09/20/24 Subjective: No acute events overnight Doing well post op Nelson out, working with PT ROS: 10 point ROS as noted above, otherwise negative Physical exam GEN: Alert, oriented x1-2, NAD HEENT: Normal conjunctiva, sclera anicteric CV: Regular rate and rhythm, no edema Pulm: Nonlabored respirations on room air ABD: Soft, nontender, nondistended MSK: No joint tenderness, swelling to left lower extremity from previous surgery Integumentary: No rashes Neuro: Normal speech, normal affect Vitals reviewed Assessment: Left hip fracture surgical repair 09/18 JULIO on CKD History of atrial fibrillation/upper extremity DVT on chronic anticoagulation Pacemaker in place Hypertension Dementia Plan: Left hip fracture S/P surgical repair 09/18 JULIO on CKD History of atrial fibrillation/upper extremity DVT on chronic anticoagulation Pacemaker in place Doing well postoperatively Working with PT Gentle IV fluids for JULIO Nephrology consulted given acute kidney injury-following Ambulatory from bedroom around the house at baseline without assistive devices Orthopedic surgery okay with resuming Xarelto-resumed Plan for SNF at [place] Hypertension Home medications continued Dementia Medications continued Oriented x 1 at baseline DVT PPX: Xarelto Code status: Full code Discharge Plan: correction facility Plan to discharge in: Greater than 2 days Time Spent Managing Pts Care (In Minutes): 35
--- NOTE | 2024-09-20 12:18 | RAD REPORT ---
EXAMINATION: ONE VIEW CHEST XR CLINICAL INDICATION: Male, 89 years old.,jada, dyspnea TECHNIQUE: Frontal chest projection is submitted. Examination is limited by patient positioning and t echnique. COMPARISON: 09/16/2024 FINDINGS: Linear peripheral right midlung subtle opacity, could represent focus of early airspace disease. No pneumothorax or sizable effusion. The heart is normal in size. Mediastinal contours are unchanged with tortuosity of the thoracic aorta. Left chest wall pacer in place.. IMPRESSION: Linear peripheral right midlung subtle opacity, could represent focus of early airspace disease.
--- NOTE | 2024-09-20 12:39 | RAD REPORT ---
EXAMINATION: CT Stone Protocol CLINICAL INDICATION: Male, 89 years old. kidney mass , jada TECHNIQUE: CT abdomen and pelvis was performed, without IV contrast, as per department protocol. Axia l, sagittal and coronal reconstructions were obtained. One or more of the following dose reduction techniques were used: Automated exposure control, adjustment of the mA and kV according to the patien t size, and iterative reconstruction. Unless otherwise specified, incidental findings do not require dedicated imaging follow-up. COMPARISON: 04/09/2024. FINDINGS: The lack of intravenous contrast limits the sensitivity of this exam for evaluation of solid visceral organs, vascular structures, and retroperitoneum. LOWER CHEST: Small layering bilateral effusions, larger on the right. LIVER: Normal in size and contour. No focal lesion. BILIARY SYSTEM: Status post cholecystectomy. SPLEEN: Normal size. No focal lesion. PANCREAS: No mass, ductal dilation, or devon-pancreatic fluid. ADRENALS: Stable left adrenal ovoid 2.7 cm nodule KIDNEYS AND URETERS: Normal size and symmetric morphology. No hydronephrosis. No radiopaque calculi. Lobulated outer contour, could relate to persistent lobulations, not well evaluated on noncontrast exam. URINARY BLADDER: Normal contour. GASTROINTESTINAL TRACT: No evidence of bowel obstruction, significant free fluid, free air or abscess . APPENDIX: Normal appendix. LYMPH NODES: No lymphadenopathy. MUSCULOSKELETAL: No acute or suspicious osseous abnormality. Recent postsurgical changes of left hip arthroplasty. 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 Left inguinal hernia containing nondistended loop of large bowel. IMPRESSION: No acute abnormalities in the abdomen or pelvis, with evaluation limited by lack of IV contrast. Lobulated outer renal contours bilaterally, could relate to persistent lobulation, although not well evaluated. No evidence of a sizable mass on this noncontrast CT. 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 Vascular surgery consultation is limited, if not already obtained. Recent postoperative changes of left hip arthroplasty. Other incidental stable findings as above.
[2024-09-20] MEDS: ACETAMINOPHEN 325 MG TABLET PO PRN (14:02)
--- NOTE | 2024-09-20 23:07 | PN ---
Date of Progress Note: 09/20/2024 Chief Complaint: Acute kidney injury. 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 Baseline creatinine level 2.3 and GFR of 27. He has history of hypertension, DVT. He is admitted to the hospital because of a hip fracture and for pain control . He was found to have acute kidney injury. Creatinine level was up to 2.9. GFR dropped to 20. He is started on IV fluids for hydration and he is tolerating IV fluids. Review of Systems: Denies fever and chills. Physical Examination: Lungs: Clear to auscultation bilaterally. Heart: S1, S2. Abdomen: Soft. Extremities: No edema. Impression And Plan: 1. Acute kidney injury secondary to prerenal azotemia secondary to volume depletion. Continue IV flu ids. a. Workup was done to rule out rhabdomyolysis. There is no evidence of rhabdomyolysis. The aline ent was previously taking valsartan. Currently, valsartan is on hold due to acute kidney injury. Re nal ultrasound was ordered to rule out obstructive uropathy and to rule out hydronephrosis. b. CT scan per stone protocol was ordered to evaluate for questionable renal mass. The patient c annot have IV contrast due to acute kidney injury. Further recommendation as far as workup for kidne y mass. He is to continue follow up with urologist for evaluation of possible kidney mass. 2. Hypertension. Continue to monitor blood pressure. Valsartan is on hold. Adjust medication. The patient may benefit from carvedilol. 3. Anemia of chronic disease. Workup started for chronic anemia. 4. Coronary artery disease, atrial fibrillation. Continue carvedilol. Currently Lasix on hold. EB/MODL Voice ID: [id number] Report ID: [id number]
[2024-09-21 06:40] LABS: Absolute Basophils 0.1 K/uL (0-0.5); Absolute Lymphocytes (CBC) 1.6 K/uL (0.7-4.9); Absolute Monocytes 0.7 K/uL (0.1-1.3); Absolute Neutrophil 11.9 K/uL (1.8-8.0); Basophils % 0.6 % (0-1.3); Eosinophils % 0.2 % (0-4.4); Hematocrit 25.8 % (39.6-49.0); Hemoglobin 8.6 g/dL (13.6-17.9); Lymphocytes % 10.9 % (15.3-44.8); MCHC 33.3 g/dL (32.0-36.0); Monocytes % 5.1 % (3.3-12.3); Neutrophils % 83.2 % (41.7-73.7); Platelets 231 thou/uL (152-406); RBC Red Blood Cell Count 2.78 M/uL (4.33-5.43)
[2024-09-21 06:57] LABS: Albumin 2.2 g/dL (3.4-5.0); Anion Gap 8.4 mEq/L (5.0-15.0); Phosphorus 1.9 mg/dL (2.5-4.9); Potassium 3.4 mEq/L (3.5-5.1)
--- NOTE | 2024-09-21 11:38 | RAD REPORT ---
EXAMINATION: UPPER EXTREMITY VENOUS UNILATE CLINICAL INDICATION: Male, 89 years old.LUE swelling TECHNIQUE: Multiplanar grayscale and color Doppler images were obtained in a upper extremity venous ultrasound. Spectral analysis of the Doppler waveforms were performed. COMPARISON: No prior exams FINDINGS: The internal jugular vein, subclavian vein, axillary vein, basilic vein, brachial vein, cephalic vein , radial vein, and ulnar vein were evaluated and patent. The brachial vein, cephalic vein, radial vein, and ulnar veins were compressible and patent. Subcutaneous edema is present along the course of the basilic vein which is patent. IMPRESSION: No evidence of deep venous thrombosis in the left upper extremity.
--- NOTE | 2024-09-21 13:28 | P.PN ---
Date of Service: 09/21/24 Subjective: No acute events overnight Doing well post op Nelson out, working with PT LUE swelling noted today Also a small amount of reported hematuria ROS: 10 point ROS as noted above, otherwise negative Physical exam GEN: Alert, oriented x1-2, NAD HEENT: Normal conjunctiva, sclera anicteric CV: Regular rate and rhythm, no edema Pulm: Nonlabored respirations on room air ABD: Soft, nontender, nondistended MSK: No joint tenderness, swelling to left lower extremity from previous surgery Integumentary: No rashes Neuro: Normal speech, normal affect Vitals reviewed Assessment: Left hip fracture surgical repair 09/18 Left common iliac aneurysm JULIO on CKD History of atrial fibrillation/upper extremity DVT on chronic anticoagulation Pacemaker in place Left upper extremity swelling Hypertension Dementia Plan: Left hip fracture S/P surgical repair 09/18 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, measuring 5.4 x 3.8 cm Discussed with vascular surgery-awaiting recommendations JULIO on CKD History of atrial fibrillation/upper extremity DVT on chronic anticoagulation Pacemaker in place Doing well postoperatively Working with PT Nephrology consulted given acute kidney injury-following Ambulatory from bedroom around the house at baseline without assistive devices Orthopedic surgery okay with resuming Xarelto-resumed Plan for SNF at [place] Left upper extremity swelling Negative for DVT Obtain x-ray Hypertension Home medications continued Dementia Medications continued Oriented x 1 at baseline DVT PPX: Xarelto Code status: Full code Discharge Plan: halfway facility Plan to discharge in: Greater than 2 days Time Spent Managing Pts Care (In Minutes): 35
--- NOTE | 2024-09-21 14:19 | RAD REPORT ---
EXAM:Humerus Left HISTORY: LUE Swelling COMPARISON: None IMPRESSION: No left humerus fracture. No radiopaque foreign body.
[2024-09-21 14:46] VITALS: O2SAT 94
[2024-09-21 22:19] VITALS: BP 154/61; TEMP 98.7
[2024-09-22 23:08] LABS: 1,25 Dihydroxy Vitamin D3 13 pg/mL; Vitamin D 1,25-Dihydroxy Total 13 pg/mL (18-72); Vitamin D,1,25-OH2, D2 <8 pg/mL
== END 2024-09-22 00:30 | disposition short-term general hospital (02) | DRG 522 ==
LOC: ER 14:48 → ERHOLD 17:13 → 2ND 18:19
PROVIDERS: ADMIT Hospitalist; ATTEND Hospitalist
PROC: 30233N1 Transfusion of Nonautologous Red Blood Cells into Peripheral Vein, Percutaneous Approach (ICD-10-PCS; 2024-09-18)
PROC: 0T9B70Z Drainage of Bladder with Drainage Device, Via Natural or Artificial Opening (ICD-10-PCS; 2024-09-18)
PROC: 0SRB0J9 Replacement of Left Hip Joint with Synthetic Substitute, Cemented, Open Approach (ICD-10-PCS; principal; 2024-09-18 11:00)
DX: S72.002A Fracture of unspecified part of neck of left femur, initial encounter for closed fracture (principal); N17.9 Acute kidney failure, unspecified; N18.4 Chronic kidney disease, stage 4 (severe); E86.0 Dehydration; E78.5 Hyperlipidemia, unspecified; I72.3 Aneurysm of iliac artery; E86.9 Volume depletion, unspecified; I48.91 Unspecified atrial fibrillation; I12.9 Hypertensive chronic kidney disease with stage 1 through stage 4 chronic kidney disease, or unspecified chronic kidney disease; D63.1 Anemia in chronic kidney disease; D50.0 Iron deficiency anemia secondary to blood loss (chronic); I25.10 Atherosclerotic heart disease of native coronary artery without angina pectoris; F03.90 Unspecified dementia, unspecified severity, without behavioral disturbance, psychotic disturbance, mood disturbance, and anxiety; R31.9 Hematuria, unspecified; Z88.0 Allergy status to penicillin; Z88.5 Allergy status to narcotic agent; Z95.0 Presence of cardiac pacemaker; Z79.82 Long term (current) use of aspirin; Z79.02 Long term (current) use of antithrombotics/antiplatelets; Z79.899 Other long term (current) drug therapy; Z85.828 Personal history of other malignant neoplasm of skin; Z86.718 Personal history of other venous thrombosis and embolism; Z87.891 Personal history of nicotine dependence; W01.0XXA Fall on same level from slipping, tripping and stumbling without subsequent striking against object, initial encounter; Y93.9 Activity, unspecified; Y92.019 Unspecified place in single-family (private) house as the place of occurrence of the external cause; Y99.9 Unspecified external cause status
CPT/HCPCS: 36415; 71045; 74176; 76377; 76770; 80048; 80069; 81003; 82550; 82570; 82607; 82652; 82728; 83540; 83880; 83970; 84156; 84466; 84484; 84550; 85014; 85018; 85025; 85610; 85730; 86850; 86900; 86901; 86920; 88304; 88305; 88311; 93005; 93971; 94010; 97110; 97116; 97161; 97530; 99285; J0690; J1100; J2003; J2405; J2704; J3010; J7030; J7050; J7120; P9016

== ENCOUNTER 2024-09-25 13:56 | Inpatient (IN) | payer OTHER, MEDICARE ==
[2024-09-30 18:24] VITALS: BMI 24.8
[2024-09-30] MEDS ORDERED: OLANZapine 2.5 MG TAB PO SCH (21:00)
[2024-09-30] MEDS: SODIUM BICARB 325 MG TAB PO SCH (21:00)
[2024-09-30] MEDS: ATORVASTATIN 40 MG TAB PO SCH (21:22)
[2024-09-30] MEDS: DONEPEZIL HCL 5 MG TAB PO SCH (21:22)
[2024-09-30] MEDS: OLANZapine 2.5 MG TAB PO SCH (21:22)
[2024-09-30] MEDS: TRAZODONE 50 MG TABLET PO SCH (21:22)
[2024-09-30] MEDS: MEMANTINE HCL 10 MG TABLET PO SCH (21:22)
[2024-09-30] MEDS: METOPROLOL TAR 50 MG TAB PO SCH (21:23)
[2024-09-30] MEDS: ACETAMINOPHEN 500 MG TAB PO PRN (21:23)
[2024-10-01 05:57] LABS: Absolute Eosinophils 0.1 K/uL (0-0.5); Absolute Lymphocytes (CBC) 1.2 K/uL (0.7-4.9); Absolute Monocytes 0.8 K/uL (0.1-1.3); Absolute Neutrophil 8.4 K/uL (1.8-8.0); Basophils % 0.3 % (0-1.3); Hematocrit 21.6 % (39.6-49.0); Hemoglobin 7.2 g/dL (13.6-17.9); Lymphocytes % 11.5 % (15.3-44.8); MCH 30.7 pg (27.0-35.0); MCHC 33.2 g/dL (32.0-36.0); MCV 92.4 fL (80-100); MPV 8.1 fL (7.6-11.3); Monocytes % 7.5 % (3.3-12.3); Neutrophils % 79.7 % (41.7-73.7); Platelets 227 thou/uL (152-406); RBC Red Blood Cell Count 2.34 M/uL (4.33-5.43); Red Cell Distribution Width 16.9 % (12.1-15.2)
[2024-10-01] MEDS: ENSURE ENLIVE 237 ML CAN PO SCH (08:00)
[2024-10-01] MEDS ORDERED: FUROSEMIDE 40 MG/4 ML VIAL IV SCH (08:00)
[2024-10-01] MEDS: AMLODIPINE 5 MG TAB PO SCH (08:07)
[2024-10-01] MEDS: FUROSEMIDE 40 MG TABLET PO SCH (08:07)
[2024-10-01] MEDS: ASPIRIN EC 81 MG TAB PO SCH (08:07)
[2024-10-01 09:05] LABS: Anion Gap 10.1 mEq/L (5.0-15.0); Magnesium 2.4 mg/dL (1.6-2.4); Potassium 4.1 mEq/L (3.5-5.1); Prealbumin 8.1 mg/dL (20-40)
[2024-10-01] MEDS: RIVAROXABAN 15 MG TABLET PO SCH (17:04)
[2024-10-01] MEDS: SODIUM BICARB 325 MG TAB PO SCH (20:02)
--- NOTE | 2024-10-02 00:54 | HP ---
Date of Admission: 09/30/2024 Time Of Service: 1 p.m. Chief Complaint: "I fell and broke my left hip." History Of Present Illness: Mr. Sanz is an 89-year-old patient with hypertension, cardiac pacema ker, prostate cancer, cholecystectomy, who lives at home with his and normally independent, bernardinou veronicag with supervision and doing his activities of daily living and similarly so. His is also in poor health and struggles with her balance and medications including managing her insulin. The ger walden's eventually passed out perhaps related to an increased insulin dosage on the . The patient himself due to his dementia ended up wandering out of his house and down into the [facility] where he tripped and fell. He landed on the left side and was unable to bear weight becaus e of pain. He was brought into [facility] Emergency Department and imaging found a left h ip fracture. On the 18 of September, he had total left hip arthroplasty. 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 He was transferred to [facility] for vascular intervention on 09/22/2024 and had surgery on 09/25/2024 and he is now status post E VERONIQUE with left internal iliac coil embolization. He was monitored in ICU and then transferred to the regular floor. He was resumed on Xarelto for DVT prophylaxis. He had wound care, which addressed th e surgical wound in the left hip. Hospital course was complicated by acute toxic metabolic encephalo yesenia on top of his baseline dementia. He did continue memantine and donepezil and had olanzapine an d trazodone for psychotic type features related to the encephalopathy. At 1 point, he pulled out his central line from the neck. However, the nurses were able to reorient him and allow reinsertion. C ompared to his baseline, he has declined significantly requiring maximum assistance for bed mobilizat ion, maintaining hip precautions, moderate assistance for nkv-mi-uxhca transfers and again activities of daily living. Furthermore, he is somewhat malnourished and requires aggressive management of ris k for deep vein thrombus. In addition, Speech Pathology will be very helpful to improve his cognitio n and his capacity to maintain safety awareness following precautions and to help him return to his p rior level of functioning and reduce his risk of rehospitalization. Discharging him home or to Skill ed Nursing, he will likely not be able to thrive and will not be as beneficial as inpatient rehabilit ation, may result in early rehospitalization. Past Medical History: Coronary artery disease, carotid artery occlusion, hypertension, cardiac pacem martin, prostate cancer. Past Surgical History: Cholecystectomy, arthrectomy, foot surgery, prostate cancer surgery, tonsille ctomy. Allergies: PENICILLIN AND MORPHINE. Medications: Tylenol 500 mg every 4 hours as needed, Norvasc 5 mg daily, aspirin 81 mg daily, Lipito r 4 mg at bedtime, Aricept 5 mg at bedtime, Lasix 40 mg daily, Namenda 5 mg twice daily, Ensure Enliv e 237 mL daily, Lopressor 50 mg daily, Zyprexa 2.5 mg at bedtime, Xarelto 15 mg daily, sodium bicarb 1300 mg 3 times daily, and trazodone 50 mg at bedtime. Laboratory Studies: White blood cell count 10.6, hemoglobin 7.2, platelets 227. Sodium 140, potassi um 4.1, chloride 108, carbon dioxide 26, BUN 32, creatinine 1.63, glucose 98, calcium 8.0, magnesium 2.4, albumin 2.0, prealbumin 8.1. Family History: Noncontributory. Social History: The patient lives with his in a single family home. No reported alcohol, tobac co, or IV drug use. Review of Systems: The patient has capacity to answer questions easily. He did eventually give a thumbs up sign and fol lows simple commands. Unable to give a reliable review of systems. Current Level Of Functioning: He is at supervision for eating, moderate assistance for grooming, dep endent for bathing, maximal assistance for upper body dressing, dependent for lower body dressing, to ileting, and transfer from bed to chair, wheelchair. In addition, he was at max assist to attempt to ambulate. Physical Examination: Vital Signs: Blood pressure is 144/67, pulse 67, respiratory rate 20, temperature 98.4, oxygen satur ation 97%. Weight 154 pounds, height 5 feet 6 inches, BMI 24.9. General: Mr. Sanz is resting comfortably. He did not eat much of his lunch, reported he ate mor e of his breakfast, does not like the nutritional drinks. Extremities: He otherwise does have some bruising in the arms and does appear somewhat disheveled, b ut is normocephalic. Arms and legs do not show any specific abnormalities. No focal findings noted. Assessment: Mr. Sanz is an 89-year-old patient, admitted to the inpatient rehabilitation unit wi th impairment category 07, fracture of lower extremity. Impairment group code is 08.11, unilateral h ip fracture. Etiologic diagnosis, left femoral neck fracture after a fall. 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 Plan: He will have physical, occupational, and speech therapy 3.5 hours, 5 of 7 days. His DVT proph ylaxis will be continuing the Xarelto which is 15 mg at bedtime also for stroke risk reduction, insom anthony addressed with trazodone. His psychotic episodes from at night likely related to his baseline dementia on top of the effects of anesthesia which was being in hospital will be addressed w ith the olanzapine 2.5 mg at bedtime. We will keep encouraging the patient to take the Ensure Enlive for protein supplementation. Continue Namenda for his cognitive impairment, Lasix for fluid managem ent, donepezil is in parallel with the Namenda as well, Lipitor for dyslipidemia, aspirin for stroke reduction, Tylenol for pain. Comorbidities That Are Impacting Rehabilitation: Mr. Sanz has moderate cognitive impairment and an acute on chronic process of encephalopathy which at times may make it difficult for him to compreh end easily. In addition, he does have poor hearing and hearing aids, which he does not have with him will be sought and hopefully will be acquired and brought in. It is noted though with loud direct s peech where he appears to read lips, he is able to follow simple commands, but it may continue to be a challenge to allow him to thrive. In addition, he has a risk of bleeding, given Xarelto and the ri sk of deep vein thrombus again mitigated by the Xarelto. As a risk of aspiration pneumonia, chest x- ray will be done to evaluate and rule that out. Urinalysis to rule out urinary tract infection. Of course, white blood cell count currently is normal. Rehab Specific Plan: Mr. Sanz will have physical, occupational, and speech therapy 3.5 hours, 5 of 7 days to improve his ability to transfer from his bed to a chair, to a wheelchair, and use a roll ing walker with hip precautions, to go up and down steps and to perform activities of daily living in cluding dressing upper and lower body, donning and doffing footwear, on and off the toilet, in and ou t of shower. Mr. Sanz and family will have discussion of the process of admission to inpatient rehabilitation facility and how it will benefit him. He will have 24 hours a day, 7 days a week skilled rehabilitat ion and nursing, daily physician evaluation and management, and social media designer evaluation and manage ment for discharge planning, home equipment, and to continue with therapy. If need be, additional he lp will be sought from the hospitalist service. Barriers To Discharge: Again, cognitive issues may become a barrier if the patient is unable to be s afe at home, his also requires help, he may have to go to group home and will have 24-hour care at home. However, the goal would be to send him home where he can continue therapy via [facility] and still be safe. Disposition: Expected to be in rehabilitation for about 12 or so days. Prognosis: Does have fair prognosis. Code Status: Full code. Rehab Specific Goals: 1. Become independent with upper and lower body dressing and donning and doffing footwear. 2. Mobilize a wheelchair 250 feet independently. 3. Use a rolling walker to ambulate 250 feet independently. 4. Go up and down 10 steps with bilateral handrails independently while maintaining his hip precautio ns. As expected to perform his cognitive functioning with supervision as he has baseline dementia. The above goals will be reviewed with the patient and his when available. By signing this document, I acknowledge I personally performed a full physical examination on no later than 24 hours after his admission to the inpatient rehabilitation unit and determined he is able to tolerate the above course of treatment at an intensive level for a reasonable period of time. A detailed individualized plan of care for him will be completed by hospital day 4 based on t he preadmission screen, history and physical, and therapy evaluations. JACINTO/NU Voice ID: [id number]
[2024-10-02 07:22] LABS: Absolute Basophils 0.1 K/uL (0-0.5); Absolute Eosinophils 0.1 K/uL (0-0.5); Absolute Lymphocytes (CBC) 1.5 K/uL (0.7-4.9); Absolute Monocytes 0.7 K/uL (0.1-1.3); Absolute Neutrophil 8.7 K/uL (1.8-8.0); Basophils % 0.5 % (0-1.3); Eosinophils % 0.6 % (0-4.4); Hematocrit 20.9 % (39.6-49.0); Hemoglobin 7.1 g/dL (13.6-17.9); Lymphocytes % 13.4 % (15.3-44.8); MCH 31.5 pg (27.0-35.0); MCHC 34.2 g/dL (32.0-36.0); MCV 92.1 fL (80-100); MPV 8.1 fL (7.6-11.3); Monocytes % 6.4 % (3.3-12.3); Neutrophils % 79.1 % (41.7-73.7); Nucleated Red Blood Cells % 0.1 % (0-0); Platelets 239 thou/uL (152-406); RBC Red Blood Cell Count 2.27 M/uL (4.33-5.43); Red Cell Distribution Width 16.8 % (12.1-15.2)
[2024-10-02 07:38] LABS: Anion Gap 12.7 mEq/L (5.0-15.0); Potassium 3.7 mEq/L (3.5-5.1)
[2024-10-02] MEDS: FE SULF/FA/VIT B COMP & C TAB PO SCH (08:54)
[2024-10-02] MEDS: ALBUMIN HUMAN 25% 100 ML IV ONE (14:00)
[2024-10-02] MEDS ORDERED: NA CHLORIDE 0.9% 250 ML ONE (15:05)
[2024-10-02] MEDS: MEGESTROL 40 MG TAB PO SCH (20:05)
[2024-10-02 22:35] LABS: Hematocrit 21.6 % (39.6-49.0); Hemoglobin 7.3 g/dL (13.6-17.9)
[2024-10-02 23:52] LABS: Specific Gravity 1.012 (1.005-1.030); Sqamous Epithelial None Seen /HPF (None Seen); Urine Bacteria None Seen /HPF (<20); Urine Bilirubin NEGATIVE (Negative); Urine Blood Negative (Negative); Urine Clarity Clear (Clear); Urine Color Light-Yellow (Yellow); Urine Culture Reflex Order NOT NEEDED; Urine Glucose NEGATIVE (Negative); Urine Ketones NEGATIVE (Negative); Urine Micro Reflex YN NO BILL MICROSCOPIC; Urine Mucus Slight /HPF (None Seen); Urine Nitrite NEGATIVE (Negative); Urine Protein NEGATIVE (Negative); Urine RBC None Seen /HPF (None Seen); Urine Urobilinogen Normal (Normal); Urine WBC <5 /HPF (<5)
--- NOTE | 2024-10-03 00:11 | PN ---
Subjective: Mr. Sanz is resting comfortably in between therapy sessions. Denies any significant pain in the left hip area. There is still some difficulty with mobilization, seen by Wound Care Ser vice. Does appear to be somewhat dehydrated and had IV fluids going on board. He was noted to be li ttle more interactive, alert after IV fluids. Objective: Family at bedside. He is still somewhat diffusely weak and does have some mild swelling noted in the left hip area, but otherwise is making fair progress thus far overall. Physical Examination: Vital Signs: Blood pressure is 125/72, pulse 72, respiratory rate 18, temperature 98.8, oxygen satur ation 94%. General: Mr. Sanz again is resting in between sessions. HEENT: He is normocephalic, atraumatic. Sclerae anicteric. Oropharynx pink and moist and no signif icant abnormalities noted and there are not any expected findings in his left hip where there is surg ical treatment done for fracture. Laboratory Studies: White blood cell count 11, hemoglobin 7.1, the patient received a unit of blood at this point, platelets 239. His creatinine elevated to 1.96. Sodium 142, potassium 3.7, chloride 109, carbon dioxide 24, BUN 12.7, calcium 8.2, glucose 85. X-ray/imaging: No new x-rays or imaging done. Medications: Tylenol 500 mg every 4 hours as needed, Norvasc 5 mg daily, aspirin 81 mg daily, Lipito r 40 mg at bedtime, Aricept 5 mg at bedtime, Lasix 40 mg daily, Megace 40 mg twice daily for poor juana etite, Namenda 5 mg twice daily, metoprolol 50 mg twice daily, Hemocyte Plus 1 tablet daily, Ensure E nlive 237 mL daily, Zyprexa 2.5 mg at bedtime, Xarelto 15 mg daily, sodium bicarb 325 mg 3 times jessica y, Desyrel 50 mg at bedtime. Progress Made With Physical, Occupational, And Speech Therapy: Today with physical therapy, emery lo required moderate to maximum assistance, multiple deb-ld-ptflb transfers, moderate to maximum as sistance required, ambulated just 4 feet with a rolling walker and maximum assistance. He did mobili ze a wheelchair 40 feet twice and 50 feet twice with minimal assistance for keeping his directions st raight. With occupational therapy, dependent for bed mobility and repositioning. He did have wrappi ng done of the extremities. There was some weeping noted in the upper extremities from significant b ruising of the arms and legs and Tirso bandage was wrapped. He elected to have SCDs on at night in the lower extremities to reduce the swelling. Again, protein is given in terms of albumin to help him a long with blood to remove the third-spacing of some of the fluid that is causing some of the weeping. Bed mobility in terms of occupational therapy did require mod assist. Regarding his speech, nubia marsh sustained attention at task for 2 minutes, 1 of 2 words recalled without visual or verbal cues after 1 minute, and divergent naming for 1 number concrete category completed with 100% accuracy wit h moderate to maximum assistance required. Assessment And Plan: Mr. Sanz is an 89-year-old patient in the rehabilitation unit with left hip fracture. He does have significantly decreased hemoglobin and protein level with weeping and swelli ng in the upper extremities. He has significant hyperemia noted in the arms. His legs are wrapped w ith Tirso wrap and will have SCDs. He will have a unit of blood and 25 g of albumin given. In additio n, we will continue to address his comorbidities including the Xarelto for his stroke risk reduction at 15 mg daily. We will hold off on the aspirin at this point as noted. We will stop aspirin. Cont inue the Xarelto. Continue Lipitor 40 mg at bedtime, donepezil 5 mg at bedtime, Tylenol 500 mg every 4 hours for pain. For his poor appetite, he has Megace 40 mg twice daily, Namenda for memory loss, Lopressor for heart rate control, Hemocyte Plus for his malnutrition along with Ensure Enlive, and ag johnn Desyrel for insomnia and currently receiving a unit of packed red blood cells. Note again, album in will be given 25 g. LB/MODL Voice ID: [id number] Report ID: [id number]
[2024-10-03 06:08] LABS: Anion Gap 8.6 mEq/L (5.0-15.0); Potassium 3.6 mEq/L (3.5-5.1)
[2024-10-03 06:09] LABS: Absolute Lymphocytes (CBC) 1.3 K/uL (0.7-4.9); Absolute Monocytes 0.8 K/uL (0.1-1.3); Absolute Neutrophil 8.1 K/uL (1.8-8.0); Basophils % 0.5 % (0-1.3); Eosinophils % 0.2 % (0-4.4); Hemoglobin 7.5 g/dL (13.6-17.9); Lymphocytes % 12.5 % (15.3-44.8); MCH 30.6 pg (27.0-35.0); MCHC 34.1 g/dL (32.0-36.0); MCV 89.9 fL (80-100); MPV 7.8 fL (7.6-11.3); Monocytes % 7.4 % (3.3-12.3); Neutrophils % 79.4 % (41.7-73.7); Nucleated Red Blood Cells % 0.1 % (0-0); Platelets 256 thou/uL (152-406); RBC Red Blood Cell Count 2.44 M/uL (4.33-5.43); Red Cell Distribution Width 16.9 % (12.1-15.2)
[2024-10-03] MEDS: CYANOCOBALAMIN 1,000 MCG TAB PO SCH (12:07)
--- NOTE | 2024-10-03 13:16 | P.RH.PN ---
Estimated Length of Stay: 16 Expected Discharge Date: 10/15/24 Discharge Disposition Plan: Home Family Support: Yes Alf Goal: Mobility, Transfers, Self Care Vital Signs: Last Vital Signs Temp 98.5 F 10/03/24 06:47 Pulse 68 10/03/24 12:07 Resp 16 10/03/24 06:47 BP 138/68 10/03/24 12:07 Pulse Ox 90 L 10/03/24 06:47 Laboratory: Laboratory Last Values WBC 10.20 thou/uL (4.3-10.9) 10/03/24 05:50 RBC 2.44 M/uL (4.33-5.43) L 10/03/24 05:50 Hgb 7.5 g/dL (13.6-17.9) L 10/03/24 05:50 Hct 22.0 % (39.6-49.0) L 10/03/24 05:50 MCV 89.9 fL (80-100) 10/03/24 05:50 MCH 30.6 pg (27.0-35.0) 10/03/24 05:50 MCHC 34.1 g/dL (32.0-36.0) 10/03/24 05:50 RDW 16.9 % (12.1-15.2) H 10/03/24 05:50 Plt Count 256 thou/uL (152-406) 10/03/24 05:50 MPV 7.8 fL (7.6-11.3) 10/03/24 05:50 Neutrophils % 79.4 % (41.7-73.7) H 10/03/24 05:50 Lymphocytes % 12.5 % (15.3-44.8) L 10/03/24 05:50 Monocytes % 7.4 % (3.3-12.3) 10/03/24 05:50 Eosinophils % 0.2 % (0-4.4) 10/03/24 05:50 Basophils % 0.5 % (0-1.3) 10/03/24 05:50 Absolute Neutrophils 8.1 K/uL (1.8-8.0) H 10/03/24 05:50 Absolute Lymphocytes 1.3 K/uL (0.7-4.9) 10/03/24 05:50 Absolute Monocytes 0.8 K/uL (0.1-1.3) 10/03/24 05:50 Absolute Eosinophils 0.0 K/uL (0-0.5) 10/03/24 05:50 Absolute Basophils 0.0 K/uL (0-0.5) 10/03/24 05:50 Sodium 142 mEq/L (136-145) 10/03/24 05:50 Potassium 3.6 mEq/L (3.5-5.1) 10/03/24 05:50 Chloride 113 mEq/L (98-107) H 10/03/24 05:50 Carbon Dioxide 24 mEq/L (21-32) 10/03/24 05:50 Anion Gap 8.6 mEq/L (5.0-15.0) 10/03/24 05:50 BUN 30 mg/dL (7-18) H 10/03/24 05:50 Creatinine 2.02 mg/dL (0.70-1.30) H 10/03/24 05:50 Est GFR (CKD-EPI) 31 ml/min (=/>90) L 10/03/24 05:50 Glucose 95 mg/dL (74-106) 10/03/24 05:50 Calcium 8.4 mg/dL (8.5-10.1) L 10/03/24 05:50 Magnesium 2.4 mg/dL (1.6-2.4) 10/01/24 05:40 Albumin 2.0 g/dL (3.4-5.0) L 10/01/24 05:40 Prealbumin 8.1 mg/dL (20-40) L 10/01/24 05:40 Urine Color Light-yellow (Yellow) 10/02/24 23:00 Urine Clarity Clear (Clear) 10/02/24 23:00 Urine pH 8.0 (5.0-7.0) H 10/02/24 23:00 Ur Specific [place] 1.012 (1.005-1.030) 10/02/24 23:00 Glucose (UA)(Auto) Negative (Negative) 10/02/24 23:00 Urine Ketones Negative (Negative) 10/02/24 23:00 Urine Blood Negative (Negative) 10/02/24 23:00 Urine Nitrite Negative (Negative) 10/02/24 23:00 Urine Bilirubin Negative (Negative) 10/02/24 23:00 Urine Urobilinogen Normal (Normal) 10/02/24 23:00 Ur Leukocyte Esterase Negative Vibha/uL (Negative) 10/02/24 23:00 Urine RBC None seen /HPF (None Seen) 10/02/24 23:00 Urine WBC <5 /HPF (<5) 10/02/24 23:00 Ur Squamous Epith Cells None seen /HPF (None Seen) 10/02/24 23:00 Urine Bacteria None seen /HPF (<20) 10/02/24 23:00 Urine Mucus Slight /HPF (None Seen) 10/02/24 23:00 Urine Culture Reflexed Not needed 10/02/24 23:00 Urine Total Protein Negative (Negative) 10/02/24 23:00 ABO/Rh O POSITIVE 10/02/24 10:50 Solid Phase Ab Screen Negative 10/02/24 10:50 Crossmatch See Detail 10/02/24 10:50 Weight: 154 lb Wound Present: No Physician Update: Labs reviewed and are stable after blood transfusion but still has a low Hgb. Will give another unit of blood. Left hip pain is managed. Poor cognition with therapy. Plan to get into [facility] assisted living in 8-10 days. BIMS 7, SLUMS 6. More disoriented and confused today. Poorly fitting dentures. Hallucinating with physical therapy today but follow simple commands. Mod assist bed mobility, min assist for sit to stand at parallel bar 7', RW 5' with mod assist. WC 30' at a time with 7 rest breaks made 250'. Dependent bed mobility, mod to max assist with ADL and upper plus lower body dressing. Summary: Patient's care plan and mcc goals have been reviewed and revised as necessary. Please see the Rehabilitation Signature page for all necessary signatures.
[2024-10-03] MEDS: NA CHLORIDE 0.9% 1,000 ML IV SCH (15:21)
[2024-10-04] MEDS: FERROUS SULFATE 325 MG TAB PO SCH (08:41)
[2024-10-05 05:33] LABS: Absolute Eosinophils 0.1 K/uL (0-0.5); Absolute Lymphocytes (CBC) 1.5 K/uL (0.7-4.9); Eosinophils % 1.3 % (0-4.4); Hematocrit 22.9 % (39.6-49.0); Monocytes % 10.2 % (3.3-12.3)
[2024-10-05 05:40] LABS: Absolute Neutrophil 7.3 K/uL (1.8-8.0); Basophils % 0.4 % (0-1.3); Hemoglobin 7.8 g/dL (13.6-17.9); Lymphocytes % 14.8 % (15.3-44.8); MCH 30.8 pg (27.0-35.0); MCHC 33.9 g/dL (32.0-36.0); MCV 91.1 fL (80-100); Neutrophils % 73.3 % (41.7-73.7); Nucleated RBC Absolute Count 0.1 (0-0); Nucleated Red Blood Cells % 0.7 % (0-0); Platelets 209 thou/uL (152-406); RBC Red Blood Cell Count 2.52 M/uL (4.33-5.43)
[2024-10-05 06:00] LABS: Albumin 2.2 g/dL (3.4-5.0); Anion Gap 8.7 mEq/L (5.0-15.0); Prealbumin 8.9 mg/dL (20-40)
[2024-10-05 06:03] LABS: Potassium 3.7 mEq/L (3.5-5.1)
[2024-10-06] MEDS: CYANOCOBALAMIN 1000MCG/ML INJ IM ONE (14:46)
[2024-10-06] MEDS: TRAZODONE 50 MG TABLET PO SCH (19:11)
--- NOTE | 2024-10-07 00:27 | PN ---
Date of Progress Note: 10/06/2024 Time Of Service: 1 p.m. Subjective: Mr. Sanz is resting in bed, noted to be somewhat less responsive today, but still is able to give thumbs up and shake hands and smiles appropriately on very simple interactions. Denies any pain, any issues in the left hip where he has surgical repair and no other complaints. It is no bianca that the patient is not progressing very well and he would likely require custodial continu ation so that therapy and time to heal could be more safely pursued rather than being discharged home . Objective: No significant myalgias, arthralgias, rash, headache, weight change. Some mild swelling in the left lower extremity, but no new findings there. Physical Examination: Vital Signs: Blood pressure is 167/77, pulse 67, respiratory rate of 16, temperature 98.5, oxygen sa turation 94%. General: Mr. Sanz is resting in bed. He is easily alerted and interacts, follows simple command s, but is slow to speak and of course has a baseline cognitive impairment. Extremities: Denies any pain in the left lower extremity where he has left hip fracture and no signi ficant swelling is noted there. Laboratory Studies: Yesterday, white blood cell count 9.9, hemoglobin 7.8, platelets 209. Sodium 14 4, potassium 3.7, chloride 116, carbon dioxide 23, BUN 28, creatinine 1.96. His glucose 92, calcium 8.0, magnesium 2.1, albumin 8.9. X-ray imaging, no new x-rays or imaging. Medications: Medications have been adjusted. The patient has had some difficulty sleeping at night. Staff noted that he was up at maybe 2 or so in the morning and had difficulty time going back to [facility]. Trazodone was increased to 100 mg at bedtime from 50 mg at bedtime. Otherwise, his medications have continued and are unchanged. He has ferrous sulfate for his anemia. Did receive a unit of blo od, which has stabilized his hemoglobin. Progress Made With Physical, Occupational, And Speech Therapy: Today with physical therapy, he did m ultiple bed mobility exercises with maximum assistance required, supine to sit transfers with maximum assistance required, kih-fi-[id number] transfers with moderate assistance required. He was only able to ambulate 10 feet with contact guard to minimum assistance with a rolling walker. Did mobilize a whee lchair 50 feet twice and a feet twice with farbfov-hn-qxfqdhsj assistance. Did need directions for sabra hanson for his directions. With occupational therapy, maximum assistance for supine to edge of bed tra nsfers, cuing needed. He was able to do bed to wheelchair, [id number]-xz-[id number] transfer, but had moderate assist requirements there. With speech, he was not oriented to any recent temporal information and only 50% oriented to recent spatial information. He sustained attention for about 30 seconds while n aming 5 members of a concrete category with moderate assistance. Assessment: Mr. Sanz is an 89-year-old patient in the rehabilitation unit with left hip fracture , status post surgical repair. He has decreased mobility, decreased physical functioning. He is not making expected progress at this point to be able to go back home safely. He is best suited at this point for likely custodial to have more time to heal and to continue. He has comorbid conditi ons including decreased mobility, decreased physical functioning, dyslipidemia, hypertension, anemia, receiving 1 blood of units and moderate cognitive impairments, mild anemia, atrial fibrillation, ins omnia. Plan: For now, we will continue with physical, occupational, and speech therapy 3.5 hours, 5 of 7 da ys. Again, plan for custodial facility discharge as the patient is not likely to thrive at [facility]. We will continue his comorbid condition. Medications have been listed including for stroke risk reduction, DVT prophylaxis, for insomnia, poor nutrition, poor appetite, which is Megace on board, do nepezil and memantine for memory loss, metoprolol for heart rate control, Lipitor for dyslipidemia, N orvasc for blood pressure control. JACINTO/NU Voice ID: [id number] Report ID: [id number]
[2024-10-07] MEDS: CEFTRIAXONE 1,000 MG in NA CHLORIDE 0.9% 50 ML IVPB SCH (16:23)
[2024-10-07] MEDS ORDERED: CEFTRIAXONE 1,000 MG in NA CHLORIDE 0.9% 50 ML IVPB SCH (17:00)
[2024-10-07] MEDS ORDERED: TRAZODONE 50 MG TABLET PO SCH (20:00)
[2024-10-07] MEDS: CRANBERRY FRUIT EXTRACT 425 MG CAPSULE PO SCH (20:06)
[2024-10-07] MEDS: TRAZODONE 150 MG TAB PO SCH (20:06)
[2024-10-07] MEDS: ENSURE ENLIVE 237 ML CAN PO SCH (20:07)
--- NOTE | 2024-10-07 22:11 | PN ---
Date of Progress Note: 10/07/2024 Time Of Service: 1:10 p.m. Subjective: Mr. Sanz is resting in bed. He is in no significant distress. Denies any pain in t he left hip surgical site, where he has a surgical repair for hip fracture. Still slow to respond, b ut does follow commands appropriately. Still has some swelling in the lower extremities which are wr apped with Tirso wrap. The left arm was well wrapped and the staff notes less weeping after he had rec eived a unit of blood and albumin 25 g. He has no new complaints. In terms of objective, no new com plaints. Still diffuse weakness. Physical Examination: Vital Signs: Blood pressure is 129/57, pulse 60, respiratory rate of 18, temperature 98.3, oxygen sa turation 96%. General: Mr. Sanz is lying in his bed in between therapy sessions. HEENT: He appears normocephalic, atraumatic. Sclerae anicteric. Oropharynx pink, moist. Extremities: He does have well bandaged arm and leg from the edema, but nothing unexpected. Laboratory Studies: No new laboratory studies. X-ray/imaging: No new x-rays or imaging. Medications: The patient has had some difficulty with sleep at night and staff noted the patient was up late at night. Today, his trazodone was adjusted to 150 mg at bedtime. He does also have on boa rd olanzapine 2.5 mg at bedtime. In addition, since urinalysis did show in terms of cultures the pre sence of Proteus mirabilis which was sensitive to Rocephin, the patient was given a gram, will have a gram today and a gram tomorrow. Furthermore, he is going to continue DVT prophylaxis with SCDs, he has amlodipine for blood pressure control, Lipitor for dyslipidemia, vitamin B12 orally for maintaini ng energy levels, Aricept 5 mg daily for dementia, Lasix for fluid management, Megace for poor appeti te. The Namenda is along with the donepezil for his memory, Hemocyte Plus for anemia, Ensure Enlive for malnutrition, and Xarelto 15 mg daily for DVT prophylaxis along with SCDs. He does have sodium b icarb as well on board along with trazodone at night. Progress Made With Physical, Occupational, And Speech Therapy: Today with physical therapy, he was a ble to complete multiple klo-bl-kuema transfers and xilto-ye-orysx transfers with minimum to moderate assistance required. He ambulated 5 feet 3 times and 10 feet with a rolling walker with moderate as sistance. Completed wheelchair mobilization 20 feet 5 times and 40 feet twice. With occupational th erapy, moderate assistance for bed mobility, supine to edge of bed transfers also requiring moderate assistance, did require significant cuing. The staff did note he had some mild hallucinations trying to reach for objects that were not there. With his speech, unable to demonstrate temporal or spatia l orientation knowledge even with cues. He had difficulty maintaining attention to focus on any give n tasks. He was not able to recall 2 pictures after 30 seconds. Assessment: Mr. Sanz is an 89-year-old patient, who has baseline dementia. He likely has acute on chronic encephalopathy with urinary tract infection being etiology. He is now on antibiotics. He does have the right hip fracture, status post surgical repair. He has decreased mobility, decreased physical functioning, insomnia, anemia, malnutrition, dyslipidemia, hypertension, and requires fluid management. Plan: He will continue with physical, occupational, and speech therapy 3.5 hours, 5 of 7 days. Give n the patient's poor progress, chances are he may not be ready for discharge home. At that time, he is allowed in inpatient rehabilitation and will therefore be likely a good candidate for skilled nurs ing to continue therapy. His worsening encephalopathy may be again related to toxic etiology and he is on Rocephin for that. We will continue with his comorbid condition medications as noted and tamera nue with therapy as he is tolerating it, 3.5 hours, 5 of 7 days of physical, occupational, and speech therapy. LB/MODL Voice ID: [id number] Report ID: [id number]
[2024-10-08] MEDS ORDERED: CEFTRIAXONE 1,000 MG in NA CHLORIDE 0.9% 50 ML IVPB SCH (08:00)
--- NOTE | 2024-10-08 15:26 | PN ---
Date of Progress Note: 10/08/2024 Time Of Service: 1 p.m. Subjective: Mr. Sanz is resting in bed. He is somewhat more sleepy today than yesterday. Howev er, he is able to attend when stimulated and was spontaneously able to reach out and shake hand and d id have good eye contact once stimulated. The nursing staff did indicate since the increase in trazo done was to 150 mg last night that potentially has led to him being sleepy somewhat during the day. He is receiving the B12 1000 mcg orally daily. He was working with Occupational Therapy, again had t o be stimulated repeatedly to keep from falling asleep. Objective: He did not make any communication in terms of complaints. In terms of his left hip fract ure area, no referring pain from that area. Physical Examination: Vital Signs: Blood pressure 130/60, pulse 63, respiratory rate of 18, temperature 98.2, O2 saturatio n 93% room air. Again, Mr. Sanz was resting in bed, did not make much eye contact unless stimula bianca and his arm on the right did move very well. No new findings. Still has Tirso wrapping of the ext remities from his edema. There is good hemostasis, not weeping through the wrapping. Laboratory Studies: He has a blood gas pending, arterial blood gas. No other laboratory studies. Medications: His trazodone is now decreased back to 50 mg at night from 150 mg. He still has Xarelt o 15 mg daily for DVT prophylaxis and stroke risk reduction given his atrial fibrillation. He has He mocyte Plus for the iron deficiency. He has Megace for poor appetite, ferrous sulfate as well. He d id receive 2 g of Rocephin for urinary tract infection, will have just 2 days worth 1 g daily. He poe s dyslipidemia, and is on Lipitor for that. Progress Made With Physical, Occupational, And Speech Therapy: With physical therapy, he was able to complete tfx-qj-oosap transfers and stand pivot transfers, but required minimum to moderate assistan ce. He did bed mobilization with min-to-mod assist. Supine to sit transfers min-to-mod assist. He was only able to walk about 5 feet 3 times and 10 feet with a rolling walker with moderate assistance . Mobilized wheelchair 20 feet 5 times and 40 feet twice. Did need frequent rest breaks. Very tire d as noted by the therapists. Regarding speech, he needed maximum cues to state temporal and spatial orientation information. Zero of 2 pictures were recalled after 30 seconds. His organizational thi nking targeted through divergent naming of concrete categories was done with 60% accuracy and require d maximum verbal cues. Assessment And Plan: Mr. Sanz is an 89-year-old patient with right hip fracture, status post rep air. He does have urinary tract infection. He is receiving Rocephin. He is somewhat more sleepy to day, potentially due to over-medication with trazodone, will be cut back to 50 mg at night. He has D VT prophylaxis on board with Xarelto for his atrial fibrillation, for stroke risk reduction as well a nd his blood pressures are managed with Norvasc and Lopressor. His dementia, he has Namenda or meman elan and donepezil and will continue with antipsychotic as needed that is the Zyprexa. In terms of t herapy, we will continue with physical, occupational and speech therapy for 3.5 hours, 5 of 7 days. Given the slow progress, he is not likely to be ready to go home and be independent with family. He will therefore be considered for retirement where he may have extra time to recover and to retur n to a more safe and appropriate status before going home and this will be discussed again on a daily basis with the patient based on his progress. JACINTO/NU Voice ID: [id number] Report ID: [id number]
[2024-10-08 16:57] LABS: Blood O2 Saturation 94.2 % (92-98.5)
[2024-10-08 16:58] LABS: Blood Gas Oxyhemoglobin 92.5 % (94-97); Blood Gas THB 9.5 g/dl (12-18)
[2024-10-08] MEDS: TRAZODONE 50 MG TABLET PO SCH (20:00)
[2024-10-09 06:23] LABS: Absolute Eosinophils 0.1 K/uL (0-0.5); Absolute Lymphocytes (CBC) 2.1 K/uL (0.7-4.9); Absolute Monocytes 0.4 K/uL (0.1-1.3); Absolute Neutrophil 4.8 K/uL (1.8-8.0); Basophils % 0.6 % (0-1.3); Eosinophils % 0.9 % (0-4.4); Hemoglobin 9.1 g/dL (13.6-17.9); Lymphocytes % 28.5 % (15.3-44.8); MCH 31.9 pg (27.0-35.0); MCHC 34.9 g/dL (32.0-36.0); MCV 91.6 fL (80-100); MPV 8.6 fL (7.6-11.3); Monocytes % 5.9 % (3.3-12.3); Neutrophils % 64.1 % (41.7-73.7); Platelets 182 thou/uL (152-406); RBC Red Blood Cell Count 2.84 M/uL (4.33-5.43); Red Cell Distribution Width 17.3 % (12.1-15.2)
[2024-10-09 06:47] LABS: Albumin 2.3 g/dL (3.4-5.0); Anion Gap 12.3 mEq/L (5.0-15.0); Magnesium 2.1 mg/dL (1.6-2.4); Potassium 3.3 mEq/L (3.5-5.1); Prealbumin 10.9 mg/dL (20-40)
[2024-10-09] MEDS: SODIUM BICARB 325 MG TAB PO SCH (08:15)
[2024-10-09] MEDS ORDERED: guaiFENesin 100 MG/5 ML UCUP PO PRN (10:11)
[2024-10-09] MEDS: POTASSIUM 25 MEQ EFFERV TAB PO ONE (10:55)
--- NOTE | 2024-10-09 11:27 | RAD REPORT ---
EXAMINATION: ONE VIEW CHEST XR CLINICAL INDICATION: Male, 89 years old.,increase coughing TECHNIQUE: Frontal chest projection is submitted. Examination is limited by patient positioning and t echnique. COMPARISON: 09/20/2024 FINDINGS: Mild perihilar hazy opacities, mildly progressive. Left chest wall pacer/AICD in place. No pneumotho rax or sizable effusion. The heart is normal in size. Mediastinal contours are unremarkable. IMPRESSION: Mild perihilar hazy opacities could reflect mild edema, atelectasis, or early airspace disease.
[2024-10-09] MEDS: NA CHLORIDE 0.9% 1,000 ML IV SCH (12:18)
--- NOTE | 2024-10-09 14:28 | PN ---
Date of Progress Note: 10/09/2024 Time: 1:15. Subjective: Mr. Sanz is resting in bed. He is slightly more alert today. He has oxygen via ava al cannula. He did not report any significant pain at this point. He does have of course a left hip fracture, surgical repairs there. He was able to attempt incentive spirometry about 500-700 cc, melissa ble to sustain more air movement than that. Staff did not indicate any new issues such as difficulty sleeping, which the patient has had at night and the dose of trazodone was decreased yesterday to 50 mg from 150 mg and so his daytime somnolence may reflect maybe less sleepy actually as a result of t hat change. Objective: No reported fevers, chills, nausea, vomiting. No myalgias, arthralgias, or rash. Physical Examination: Vital Signs: Blood pressure 102/56, pulse of 60, respiratory rate 18-20, temperature 97.6, oxygen sa turation 96%. General: Mr. Sanz is lying in bed. He does not appear to be in any distress. He has oxygen via nasal cannula. Neurologic: He moves upper and lower extremities equally well. Did not favor the left hip where he had surgery and no other new findings there. Laboratory Studies: White blood cell count 7.4, hemoglobin 9.1, platelets 182. His arterial blood g as was noted on yesterday where the pCO2 was low and the pO2 as well and he did have BiPAP however ye sterday which likely also helped with his oxygenation and CO2. His blood work did show increased cre atinine now 2.03. He was 2.02 on the th and 1.96 on the . He is on Lasix and the Lasix dosage was decreased by one half from 40 mg a day to 20 mg daily. Furth ermore, he is continued on the Rocephin, which he did receive for urinary tract infections complicati on likely to worsen his cognitive functioning. In addition, medications were continued for dyslipide jose, essential hypertension. Energy level, he has B12 on board. He has Megace for appetite stimulat ion. Dementia is addressed with his Namenda. Ensure Enlive for malnutrition. He has Xarelto for hi s atrial fibrillation and stroke risk reduction. His sodium bicarb dosage was decreased by half from 325 mg 4 times daily to twice daily. Progress Made With Physical, Occupational Therapy: Today with the occupational therapy he was at a m oderate assistance level for upper body dressing, maximal assistance for lower body dressing and for bathing. He has minimal assistance for transferring edge of bed to wheelchair, minimum assistance fo r toilet and shower transfers. The patient was able to communicate his needs to the therapist withou t significant difficulties. With physical therapy, moderate assistance for turning over in bed. Sup ine-to-sit transfers at moderate assistance level. He covered 10 feet, 20 feet with moderate assista nce and a rolling walker. Mobilized wheelchair 40 to 50 feet 5 times and covered a total of 250 feet with contact guard to minimum assistance required. With his speech, he was able to recall none of 2 pictures after 30 seconds. Organizational thinking skills were targeted through divergent naming of concrete categories with 60% accuracy and maximal verbal cues required. Assessment: Mr. Sanz is an 89-year-old patient with a fracture of the left hip, status post surg ical repair. He has moderate cognitive impairment making slow progress with his improvement in cogni tion. He has a number of comorbid conditions including anemia. He has decreased oxygenation and jonathon nolence. He has poor appetite, hypertension. In terms of his plan, we will continue with 3.5 hours, 5 of 7 days of physical, occupational, and speech therapy. We will continue to monitor and adjust a s needed medications to help with his sleep, reduce risk of deep vein thrombus, address blood pressur e issues, oxygenation issues and his pain level which is currently well managed with Tylenol and no s tronger medications. Comorbidities That Are Impacting Rehabilitation: His biggest factor making rehabilitation difficult is cognitive impairment and being able to maintain alertness, awareness so that safety will be prime. He is at high risk of additional falls as he is not able to safely transfer without losing balance. As a result, he is not safe to go home, but will be safer in a senior living facility, which is s et for him to transfer either today or in the near future as he will be able to continue therapy in a safe environment to give him more time to heal and make safer decisions in term s of his mobilization and transfers. JACINTO/ROXYL Voice ID: [id number] Report ID: [id number]
[2024-10-09] MEDS: DULOXETINE 30 MG CAP PO SCH (20:06)
[2024-10-10] MEDS: POTASSIUM 25 MEQ EFFERV TAB PO SCH (07:22)
[2024-10-10] MEDS: FUROSEMIDE 20 MG TABLET PO SCH (07:24)
--- NOTE | 2024-10-10 13:16 | P.RH.PN ---
Estimated Length of Stay: 16 Expected Discharge Date: 10/14/24 Discharge Disposition Plan: Home Family Support: Yes Retirement Goal: Mobility, Transfers, Self Care Vital Signs: Last Vital Signs Temp 98.1 F 10/10/24 08:00 Pulse 60 10/10/24 08:00 Resp 12 10/10/24 08:00 BP 140/68 10/10/24 08:00 Pulse Ox 95 10/10/24 08:00 Laboratory: Laboratory Last Values WBC 7.40 thou/uL (4.3-10.9) 10/09/24 05:57 RBC 2.84 M/uL (4.33-5.43) L 10/09/24 05:57 Hgb 9.1 g/dL (13.6-17.9) L 10/09/24 05:57 Hct 26.0 % (39.6-49.0) L 10/09/24 05:57 MCV 91.6 fL (80-100) 10/09/24 05:57 MCH 31.9 pg (27.0-35.0) 10/09/24 05:57 MCHC 34.9 g/dL (32.0-36.0) 10/09/24 05:57 RDW 17.3 % (12.1-15.2) H 10/09/24 05:57 Plt Count 182 thou/uL (152-406) 10/09/24 05:57 MPV 8.6 fL (7.6-11.3) 10/09/24 05:57 Neutrophils % 64.1 % (41.7-73.7) 10/09/24 05:57 Lymphocytes % 28.5 % (15.3-44.8) 10/09/24 05:57 Monocytes % 5.9 % (3.3-12.3) 10/09/24 05:57 Eosinophils % 0.9 % (0-4.4) 10/09/24 05:57 Basophils % 0.6 % (0-1.3) 10/09/24 05:57 Absolute Neutrophils 4.8 K/uL (1.8-8.0) 10/09/24 05:57 Absolute Lymphocytes 2.1 K/uL (0.7-4.9) 10/09/24 05:57 Absolute Monocytes 0.4 K/uL (0.1-1.3) 10/09/24 05:57 Absolute Eosinophils 0.1 K/uL (0-0.5) 10/09/24 05:57 Absolute Basophils 0.0 K/uL (0-0.5) 10/09/24 05:57 pH 7.44 (7.35-7.45) 10/08/24 14:50 pCO2 32.6 mmHG (35-45) L 10/08/24 14:50 pO2 63.3 mmHG (75-100) L 10/08/24 14:50 HCO3 22.0 mmol/L (22-28) 10/08/24 14:50 Base Excess -1.5 mmol/L 10/08/24 14:50 Oxyhemoglobin 92.5 % (94-97) L 10/08/24 14:50 ABG O2 Sat (Measured) 94.2 % (92-98.5) 10/08/24 14:50 ABG Carboxyhemoglobin 1.0 % (0-1.5) 10/08/24 14:50 ABG Methemoglobin 0.8 % (0-1.5) 10/08/24 14:50 Other Total Hgb 9.5 g/dl (12-18) L 10/08/24 14:50 Inspired O2 21.0 % 10/08/24 14:50 Sodium 142 mEq/L (136-145) 10/09/24 05:57 Potassium 3.3 mEq/L (3.5-5.1) L 10/09/24 05:57 Chloride 110 mEq/L (98-107) H 10/09/24 05:57 Carbon Dioxide 23 mEq/L (21-32) 10/09/24 05:57 Anion Gap 12.3 mEq/L (5.0-15.0) 10/09/24 05:57 BUN 35 mg/dL (7-18) H 10/09/24 05:57 Creatinine 2.03 mg/dL (0.70-1.30) H 10/09/24 05:57 Est GFR (CKD-EPI) 31 ml/min (=/>90) L 10/09/24 05:57 Glucose 84 mg/dL (74-106) 10/09/24 05:57 Calcium 8.3 mg/dL (8.5-10.1) L 10/09/24 05:57 Magnesium 2.1 mg/dL (1.6-2.4) 10/09/24 05:57 Albumin 2.3 g/dL (3.4-5.0) L 10/09/24 05:57 Prealbumin 10.9 mg/dL (20-40) L 10/09/24 05:57 Urine Color Light-yellow (Yellow) 10/02/24 23:00 Urine Clarity Clear (Clear) 10/02/24 23:00 Urine pH 8.0 (5.0-7.0) H 10/02/24 23:00 Ur Specific [place] 1.012 (1.005-1.030) 10/02/24 23:00 Glucose (UA)(Auto) Negative (Negative) 10/02/24 23:00 Urine Ketones Negative (Negative) 10/02/24 23:00 Urine Blood Negative (Negative) 10/02/24 23:00 Urine Nitrite Negative (Negative) 10/02/24 23:00 Urine Bilirubin Negative (Negative) 10/02/24 23:00 Urine Urobilinogen Normal (Normal) 10/02/24 23:00 Ur Leukocyte Esterase Negative Vibha/uL (Negative) 10/02/24 23:00 Urine RBC None seen /HPF (None Seen) 10/02/24 23:00 Urine WBC <5 /HPF (<5) 10/02/24 23:00 Ur Squamous Epith Cells None seen /HPF (None Seen) 10/02/24 23:00 Urine Bacteria None seen /HPF (<20) 10/02/24 23:00 Urine Mucus Slight /HPF (None Seen) 10/02/24 23:00 Urine Culture Reflexed Not needed 10/02/24 23:00 Urine Total Protein Negative (Negative) 10/02/24 23:00 ABO/Rh O POSITIVE 10/02/24 10:50 Solid Phase Ab Screen Negative 10/02/24 10:50 Crossmatch See Detail 10/02/24 10:50 Weight: 154 lb Wound Present: Yes Closed Surgical Incision Present: Yes Negative Pressure Wound Therapy Present: No Physician Update: Labs were reviewed and are stable. He has poor cognition. BIMS 7, SLUMS 7, only oriented to self. He has 30 seconds of attention. He was more awake today buy still very confused. Slight improvement today, Improved to CGA with transfers. Mod to max toileting and showers. Min assist bed mobility, stand pivot transfers, RW 20' min assist, SBA supine to stand. Max for foot wear. Max for reminders. 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 Please see the Rehabilitation Signature page for all necessary signatures.
[2024-10-11 05:45] LABS: Anion Gap 10.8 mEq/L (5.0-15.0); Potassium 3.8 mEq/L (3.5-5.1)
[2024-10-11] MEDS: NA CHLORIDE 0.9% 1,000 ML IV SCH (11:13)
--- NOTE | 2024-10-11 14:46 | RAD REPORT ---
EXAMINATION: Head Brain Wo Cont CLINICAL INDICATION: Male, 89 years old.post fall TECHNIQUE: Axial CT images from the skull base to the vertex without intravenous contrast. Coronal an d sagittal reformatted images were created from the data set. One or more of the following dose reduction techniques were used: Automated exposure control, adjustment of the mA and/or kV according to patient size, and/or iterative reconstruction. Unless otherwise specified, incidental findings do not require dedicated imaging follow-up. [id number]. COMPARISON: 09/27/2022 FINDINGS: INTRACRANIAL: No acute intracranial hemorrhage. No hydrocephalus. No mass effect or midline shift. Mi tr-[id number]-avstqjeh chronic small vessel ischemic changes.Small hypoattenuating foci at the basal ganglia may represent remote basal ganglial lacunar infarcts. VASCULATURE: No visualized abnormalities in the arteries or dural venous sinuses. SCALP/SKULL: No calvarial fracture identified. No acute soft tissue abnormality. SINUSES: The visualized paranasal sinuses are mostly clear. Left mastoid fluid IMPRESSION: No acute intracranial abnormality.
--- NOTE | 2024-10-11 15:19 | RAD REPORT ---
EXAMINATION: Hip Left 2 View VIEWS: As above CLINICAL INDICATION: Male, 89 years old. post hip surgery COMPARISON: No prior exam. IMPRESSION: No acute fracture. Status post left total hip arthroplasty. No dislocation. Surgical changes at the pelvis including vascular stents and peripheral vascular calcifications.
--- NOTE | 2024-10-11 15:19 | RAD REPORT ---
EXAMINATION: Hip Right 2 View VIEWS: As above CLINICAL INDICATION: Male, 89 years old. post fall COMPARISON: 09/16/2024 IMPRESSION: No acute fracture. Lucency overlying the right basicervical region consistent with a skinfold. No dislocation. Mild right acetabular degenerative changes. Postoperative changes of the pelvis. Peripheral vascular calcifications.
[2024-10-12 05:19] LABS: Absolute Lymphocytes (CBC) 1.7 K/uL (0.7-4.9); Absolute Monocytes 0.4 K/uL (0.1-1.3); Absolute Neutrophil 3.8 K/uL (1.8-8.0); Basophils % 0.4 % (0-1.3); Eosinophils % 0.1 % (0-4.4); Hematocrit 23.8 % (39.6-49.0); Lymphocytes % 28.1 % (15.3-44.8); MCH 30.8 pg (27.0-35.0); MCHC 33.7 g/dL (32.0-36.0); MCV 91.6 fL (80-100); MPV 8.5 fL (7.6-11.3); Monocytes % 7.5 % (3.3-12.3); Neutrophils % 63.9 % (41.7-73.7); Platelets 179 thou/uL (152-406); Red Cell Distribution Width 17.5 % (12.1-15.2)
[2024-10-12 05:33] LABS: Anion Gap 10.6 mEq/L (5.0-15.0); Potassium 3.6 mEq/L (3.5-5.1)
--- NOTE | 2024-10-12 13:13 | PN ---
Date of Progress Note: 10/12/2024 Time Of Service: 9 a.m. Subjective: Mr. Sanz is resting in bed, still somewhat disoriented about where he is, but does f ollow simple commands with repeated encouragement. The patient did have a slip out of the bed yester day and the staff was only alerted after the bed alarm sounded, but he was already on the floor. He did not have any areas of pain or bruising except the left arm that is already bandaged, had a minor bruise. He did have hip x-rays done on both hips and the left hip showed left total hip arthroplasty with surgical changes at the pelvis including avascular sense and peripheral vascular calcification. There was no dislocation. No fracture noted and on the right hip, the x-ray showed no acute fractu re. There is lucency overlying the right basicervical region consistent with skin fold. There is no dislocation. There is mild right acetabular degeneration and postoperative changes of the pelvis, p eripheral vascular calcification noted. Also a head CT scan without contrast was done and the study showed no acute intracranial abnormalities. There is mild to moderate chronic small vessel ischemic disease. Small hypoattenuation foci in the basal ganglia represent remote basal ganglia lacunar infa rcts and those are bilaterally. Objective: Again, Mr. Sanz is lying in bed. He does alert and interact, move arms and legs with no unexpected findings. Physical Examination: Vital Signs: Blood pressure is 128/58, pulse 60, respiratory rate 18, temperature 98.1, oxygen satur ation 98%. General: Mr. Sanz again is resting comfortably. He appears to be in no acute distress. Extremities: Left arm is bandaged. There are bruises noted throughout. Good hemostasis at the left hip surgical site. No unexpected findings. Laboratory Studies: White blood cell count 6.0, hemoglobin 8.0, platelets 179. Sodium 145, potassiu m 3.6, chloride 117, carbon dioxide 21, BUN 37, creatinine 2, calcium 8.0, glucose 87. Medications: His medications have been reviewed and are unchanged. Progress Made With Physical, Occupational, And Speech Therapy: Regarding physical therapy, he did felix pine-to-sit transfers with moderate assistance, [id number] transfers moderate assistance. He mob ilized wheelchair 30 feet with moderate assistance. With his occupational therapy, moderate assistan ce for bed mobilization, upper body dressing, total dependence for lower body dressing. Assessment: Mr. Sanz is an 89-year-old patient in the rehabilitation unit with right hip fractur e, status post surgical repair. He had recent fall with no unexpected findings in the left hip and t he right hip or any unexpected findings on head CT scan. He still has decreased mobility, decreased physical functioning, insomnia, atrial fibrillation, malnutrition, iron deficiency, moderate dementia , dyslipidemia with hypertension. Plan: He will continue with physical, occupational, and speech therapy 3.5 hours, 5 of 7 days. The patient does have a bed alarm and bed rails to be kept up at all times. He is right at the nursing s tation with the door open for easy viewing and allowing help to be immediately available. We will co ntinue his comorbid condition medications including for DVT risk reduction and stroke risk reduction, for which he is on Xarelto 15 mg daily. Other supplementation continued in terms of nutrition for i myrna and for Ensure. Given the patient's poor progress, chances of him going home will be small at th is point and he may have to go to skilled. Regarding his code status, the code status was discussed with the patient's and he had requested do not resuscitate as his status and that was entered into the system today. He is a do not resusci dhillon status. JACINTO/NU Voice ID: [id number] Report ID: [id number]
--- NOTE | 2024-10-13 19:59 | PN ---
Date of Progress Note: 10/13/2024 Time Of Service: 1:01 p.m. Subjective: Mr. Sanz is lying in bed, more alert than he has been in the last few days, but stil l very minimally communicative, very few words, may nod, perhaps say yes to questions, but not carryi ng on equal conversation. There is no pain in the left hip surgical site. There is good hemostasis in that area. Still has bruising in the arms and forearms, which are likely related to his anticoagu lation and recent fall. Objective: No reported fevers, chills. No nausea, vomiting. No significant myalgias, arthralgias. No other findings are positive. Physical Examination: Vital Signs: Blood pressure 150/72, pulse 60, respiratory rate 18 to 20, temperature 98, oxygen satu ration 94%, weight 154 pounds, height 5 feet 6 inches, BMI 24.9. Laboratory Studies: White blood cell count 6.0, hemoglobin 8.0, platelets 179. Sodium 145, potassiu m 3.6, chloride 117, carbon dioxide 21, BUN 37, creatinine at baseline of 2, calcium 8.0. X-ray imaging as noted. CT scan of the head was done over the weekend. The patient had the slip out of the bed. No acute ischemic hemorrhagic findings are identified. Medications: His medications have been reviewed and are unchanged. Progress Made With Physical, Occupational, And Speech Therapy: Today, with his speech therapy, he wa s noted to have decline in his cognitive communicative skills. He scored a 1 on the BIMS out of 15, only able to repeat 1 of 3 words. The SLUMS were not administered as he has severe deficits in atten tion and ability to follow instructions. No orientation. No problem solving. With physical therapy , mobilized wheelchair 30 feet with moderate assistance, supine to sit transfers done with moderate a ssistance, [id number] transfers also moderate assistance required and lots of encouragement and c uing needed. Assessment: Mr. Sanz is 89-year-old patient in the unit with a left hip fracture status post edwin gical repair. He has decreased mobility, decreased physical functioning, significant cognitive impai rment making it difficult for him to follow instructions to be safe. 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 Plan: For now, his plan is to continue with physical, occupational, and speech therapy. He will be discharged to a longterm facility tomorrow as he is unable to go home and be safe at home. Daniel s is currently hospitalized. Although there is an issue, there is an ex- who is still very involved with his care and a current and I spoke with the patient's current , and did change his code status to do not resuscitate, which the patient had wished for and the son is also on the s kymberly page with that. Currently, the patient will continue therapy again, we will discharge to longterm and continue with therapy. All his medications will be continued as during hospitalization with an eye for reducing the risk of infection, aspiration pneumonia in particular, and risk of falli ng and fracture should be paid careful attention to as the patient may be impulsive and tend to get o ut of bed without assistance. JACINTO/NU Voice ID: [id number] Report ID: [id number]
[2024-10-14 06:26] VITALS: BP 167/72; TEMP 98.2
[2024-10-14 12:08] VITALS: O2SAT 97
== END 2024-10-14 12:15 | DRG 559 ==
LOC: 5TH 09-30 16:44
PROVIDERS: ADMIT Psychiatry & Neurology Neurology with Special Qualifications in Child Neurology; ATTEND Psychiatry & Neurology Neurology with Special Qualifications in Child Neurology
PROC: 30233N1 Transfusion of Nonautologous Red Blood Cells into Peripheral Vein, Percutaneous Approach (ICD-10-PCS; principal; 2024-10-02)
PROC: 5A09357 Assistance with Respiratory Ventilation, Less than 24 Consecutive Hours, Continuous Positive Airway Pressure (ICD-10-PCS; 2024-10-09)
DX: S72.002D Fracture of unspecified part of neck of left femur, subsequent encounter for closed fracture with routine healing (principal); G92.8 Other toxic encephalopathy; E46 Unspecified protein-calorie malnutrition; F05 Delirium due to known physiological condition; N39.0 Urinary tract infection, site not specified; B96.4 Proteus (mirabilis) (morganii) as the cause of diseases classified elsewhere; I25.10 Atherosclerotic heart disease of native coronary artery without angina pectoris; F03.90 Unspecified dementia, unspecified severity, without behavioral disturbance, psychotic disturbance, mood disturbance, and anxiety; I12.9 Hypertensive chronic kidney disease with stage 1 through stage 4 chronic kidney disease, or unspecified chronic kidney disease; N18.30 Chronic kidney disease, stage 3 unspecified; G47.00 Insomnia, unspecified; I48.91 Unspecified atrial fibrillation; E78.5 Hyperlipidemia, unspecified; E86.0 Dehydration; R53.1 Weakness; D64.9 Anemia, unspecified; E61.1 Iron deficiency; R40.0 Somnolence; I65.29 Occlusion and stenosis of unspecified carotid artery; W06.XXXA Fall from bed, initial encounter; Z91.81 History of falling; Y92.230 Patient room in hospital as the place of occurrence of the external cause; Z68.24 Body mass index [BMI] 24.0-24.9, adult; Z85.46 Personal history of malignant neoplasm of prostate; Z95.0 Presence of cardiac pacemaker; Z66 Do not resuscitate
CPT/HCPCS: 36415; 36430; 70450; 71045; 80048; 81001; 82040; 82805; 83735; 84134; 85014; 85018; 85025; 86850; 86900; 86901; 86920; 87077; 87086; 87088; 87186; 92523; 94010; 94660; 94760; 97110; 97116; 97129; 97163; 97165; 97530; 97542; J0696; J3420; J7030; J7050; P9016; P9047